=== PATIENT | male | born 1965 | race Two or more races ===

== ENCOUNTER 2025-02-19 21:39 | Inpatient (IN) | payer MEDICARE, MEDICAID, SELFPAY ==
[2025-02-19] VITALS (19 sets, daily range): BP systolic 97–137; BP diastolic 66–100; PULSE 67–95; RESP 20–28; TEMP 36.1–36.2; O2SAT 95–100; BMI 23.6
--- NOTE | 2025-02-19 21:40 | PC.NURSE ---
Case Consult 02/19/2025 21:40:45 [facility] Case # [id number] has been created.
[2025-02-19] MEDS: MIDAZOLAM INJ 1 MG/ML VIAL 2 ML 2 MG IVP ×2 (21:43→21:47)
[2025-02-19] MEDS: PROPOFOL 1,000 MG IVPB 1,000 MG/100 ML VIAL 2.37 MG IV (21:52)
[2025-02-19] MEDS: ETOMIDATE INJ 2 MG/ML VIAL 10 ML 20 MG IVP (21:54)
[2025-02-19] MEDS: SUCCINYLCHOLINE INJ 20 MG/ML VIAL 10 ML 100 MG IV (21:55)
--- NOTE | 2025-02-19 21:58 | EKG_ITS ---
[facility] (Formerly [facility]) Test Date: 2025-02-19 Pat Name: DAVID RUSSO Department: Room: - Gender: Male [employer]ician: : 1965 Requested By: Alfonso Solano Order Number: [id number] Reading MD: Alfonso Solano Measurements Intervals [place] Rate: 80 P: 54 MA: 183 QRS: -5 QRSD: 86 T: 30 QT: 374 QTc: 433 Interpretive Statements SINUS RHYTHM No previous ECG available for comparison /[email or web address]/[id number].pdf
--- NOTE | 2025-02-19 21:59 | EDNOTE_ITS ---
Neuro Symptoms Deficit-RME/HPI General Chief Complaint: Altered Mental Status Stated Complaint: STROKE Time Seen by Provider: 02/19/25 22:04 Arrival date/time: 02/19/25 21:39 Limitations: no limitations RME / HPI RME / HPI Narrative: Dr. 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 Stroke alert initiated prior to ED arrival. Patient was seen by me immediately upon arrival at 2138. Patient was intubated at 2156. LKW 2129 Per EMS, patient was found down on the ground by family. EMS notes fire department observed right facial droop and was drooling out of the right side of his mouth. Patient became combative en route. Blood sugar with EMS was 123. EMS denies the patient being on blood thinners. Full ROS is unobtainable due to the patient's AMS. Related Data Home Medications ?Medication ?Instructions ?Recorded ?Confirmed risperidone 2 mg tablet (Risperdal) 2 mg PO HS #0 tabs 02/23/16 11/05/19 benztropine 2 mg tablet 2 mg PO BID 11/05/19 0 Allergies Allergy/AdvReac Type Severity Reaction Status Date / Time No Known Allergies Allergy Unverified 11/05/19 13:23 Review of Systems Review of Systems ROS Unobtainable: unobtainable due to mental status Past Medical History Past Medical History CARDIAC: Negative Congestive Heart Failure RESPIRATORY: Negative Chronic Obstructive Pulmonary Disease (COPD) GENITOURINARY: Negative Renal Disease ENDOCRINE: Negative Diabetes Mellitus Type 1 or Diabetes Mellitus Type 2 PSYCHO/SOCIAL: Positive Schizophrenia Social History SMOKING STATUS: Current every day smoker ED Exam General Limitations: Present no limitations General appearance: Present in distress and other (Uncooperative, moving all extremities and attempting to remove his IV.) Head Head exam: Present atraumatic and normocephalic Eye Eye exam: Present normal appearance, PERRL and EOMI ENT ENT exam: Present mucous membranes dry and other (Right facial droop. No tongue biting) Neck Neck exam: Present trachea midline Chest Chest inspection: Present normal inspection and symmetric chest wall rise Respiratory Respiratory exam: Present normal lung sounds bilaterally Cardiovascular Cardiovascular exam: Present regular rate, normal rhythm and normal heart sounds Abdominal Exam Abdominal exam: Present soft; Absent distention Extremities Exam Extremities exam: Present normal capillary refill and other; Absent pedal edema Neurological Exam Neurological exam: Present other (Unable to assess. After 4 mg of Versed the patient is able to state his name but cannot answer any other questions. GCS E2,V2,M4) Psychiatric Psychiatric exam: Present agitated Skin Skin exam: Present warm, dry, intact and normal color; Absent rash Course Course Course Narrative: 2155: Patient intubated by resident physician, Dr. Dee, PGY-2, under my supervision. See procedure note. CXR ordered for post intubation. 2200: Patient sent to CT. Quality Measures Suspected type of Stroke: Acute Ischemic Tenecteplase given: within 60 min of arrival stroke Orders Category Date Time Status Bedside Blood Glucose NOW Care 02/19/25 21:58 Active COVID-19 Screening Questionnaire NOW Care 02/19/25 23:24 Active Renal Dialysis Technician NOW Care 02/19/25 21:58 Active Continuous Pulse Oximetry NOW Care 02/19/25 21:58 Completed Decision to Admit X1 Care 02/19/25 23:24 Completed EKG (ED ONLY) *Do not use* NOW Care 02/19/25 21:58 Completed Emergency Titration Protocol Stat Care 02/19/25 23:23 Ordered Emergency Titration Protocol Stat Care 02/19/25 23:24 Ordered In and Out Catheter NEEDED Care 02/19/25 21:58 Active Insert IV NOW Care 02/19/25 21:58 Active Intubation NOW Care 02/19/25 23:01 Completed Miscellaneous Nursing Order X1 Care 02/19/25 23:23 Completed NIH Stroke Scale Q4HX8,QSHIFT Care 02/19/25 22:43 Active NIH Stroke Scale now Care 02/19/25 21:58 Active NPO NOW Care 02/19/25 21:58 Active Neuro Check Q30M Care 02/19/25 22:43 Active Nurse Swallow Screen x1 Care 02/19/25 21:58 Active Urinary Catheter QS Care 02/19/25 22:51 Active Vital Signs Q5M Care 02/19/25 22:33 Completed Consult to Neurology / Tele-Neurology Routine Cons 02/19/25 21:[address] angio stroke protocol Stat Exams 02/19/25 21:[address] stroke protocol Stat Exams 02/19/25 21:58 Completed EKG (ED Only) Stat Exams 02/19/25 21:58 Draft XR chest 1V post procedure Stat Exams 02/19/25 23:45 Taken Alcohol, Blood Medical Stat Lab 02/19/25 21:40 Completed B-Type Natriuretic Peptide Stat Lab 02/19/25 21:40 Completed CBC Stat Lab 02/19/25 21:40 Completed Comprehensive Metabolic Panel Stat Lab 02/19/25 21:40 Completed Drug Screen,Urine Stat Lab 02/19/25 22:49 Completed Magnesium Stat Lab 02/19/25 21:40 Completed Partial Thromboplastin Time Stat Lab 02/19/25 21:40 Completed Prothrombin Time with INR Stat Lab 02/19/25 21:40 Completed Troponin I Stat Lab 02/19/25 21:40 Completed Urinalysis Stat Lab 02/19/25 22:49 Completed Urine Culture Stat Lab 02/19/25 22:49 Received Dexmedetomidine 400 Mcg Ivpb [Precedex Ivpb] Med 02/19/25 23:22 Discontinued 400 mcg in 100 ml IV 0.2 mcg/kg/hr Dexmedetomidine 400 Mcg Ivpb [Precedex Ivpb] Med 02/19/25 23:34 Discontinued 400 mcg in 100 ml IV 0.2 mcg/kg/hr Etomidate Inj [Amidate Inj] Med 02/19/25 21:45 Discontinued 20 mg .ROUTE .STK-MED ONE Etomidate Inj [Amidate Inj] Med 02/19/25 23:17 Discontinued 20 mg IVP X1 ONE Labetalol IV [Trandate IV] Med 02/19/25 22:26 Active 10 mg IVP PRNMRX1 PRN Labetalol IV [Trandate IV] Med 02/19/25 22:26 Active 10 mg IVP PRNMRX1 PRN Labetalol IV [Trandate IV] Med 02/19/25 21:58 Active 10 mg IVP Q15M PRN Midazolam Inj [Versed Inj] Med 02/19/25 21:36 Discontinued 2 mg .ROUTE .STK-MED ONE Midazolam Inj [Versed Inj] Med 02/19/25 21:38 Discontinued 2 mg .ROUTE .STK-MED ONE Midazolam Inj [Versed Inj] Med 02/19/25 22:05 Discontinued 2 mg IVP X1 ONE Midazolam Inj [Versed Inj] Med 02/19/25 22:05 Discontinued 2 mg IVP X1 ONE Midazolam Inj [Versed Inj] Med 02/19/25 21:41 Discontinued 6 mg .ROUTE .STK-MED ONE Nicardipine/Ns 20Mg Ivpb [Cardene Ivpb] Med 02/19/25 22:26 Active 20 mg in 200 ml IV 5 mg/hr Ondansetron Inj [Zofran Inj] Med 02/19/25 21:58 Active 4 mg IVP Q4HR PRN Propofol 1,000 mg Ivpb [Diprivan Ivpb] Med 02/19/25 21:49 Discontinued 1,000 mg in 100 ml IV .STK-MED Propofol 1,000 mg Ivpb [Diprivan Ivpb] Med 02/19/25 22:00 Active 1,000 mg in 100 ml IV 5 mcg/kg/min Succinylcholine Inj [Anectine Inj] Med 02/19/25 23:27 Discontinued 100 mg IV X1 ONE Succinylcholine Inj [Anectine Inj] Med 02/19/25 21:46 Discontinued 200 mg .ROUTE .STK-MED ONE Tenecteplase Inj [TNKase Inj] Med 02/19/25 22:26 Discontinued 19.8 mg IV X1 ONE Tenecteplase Inj [TNKase Inj] Med 02/19/25 22:27 Discontinued 50 mg .ROUTE .STK-MED ONE fentaNYL 2,500 MCG/250 ML BAG [Sublimaze Inj 2,500 MCG/ Med 02/19/25 22:00 Active 250 ML BAG] 2,500 mcg in 250 ml IV 25 mcg/hr Oxygen Delivery NOW RT 02/19/25 21:58 Active Volume Ventilator Stat RT 02/19/25 23:01 Active Vital Signs Vital signs: Vital Signs Pulse Rate 95 02/19/25 22:29 Blood Pressure 137/100 H 02/19/25 22:29 Pulse Oximetry (%) 100 02/19/25 22:29 Fraction of Inspired Oxygen 30 02/19/25 22:29 PROCEDURES: Intubation Time out performed: Yes sedative: Etomidate Mg Given: 20 paralytic: Succinylcholine Mg Given: 100 Laryngoscope: Eren ET Tube Size: 7.5 ET Tube Uncuffed: No Tube Secured Depth (cm): 21 Tube Secured Location: lips Tube Placement Confirmation: visualized tube passing through cords, equal breath sounds bilaterally, no breath sounds over epigastrium and confirmation by capnometry Patient Tolerated Procedure: well and no complications Intubation Complications: none Additional Comments: A time out was performed. My hands were washed immediately prior to the procedure.The patient was placed on a desk monitor including continuous pulse oximetry. Rapid Sequence Intubation was conducted. The patient received 4 mg of etomidate for induction and 100mg of succinylcholine for adequate paralysis. Using a Mac laryngoscope and a size 7.5 endotracheal tube with stylet, the patient was intubated on the 1st attempt. The stylet was removed and cuff balloon was inflated. Appropriate endotracheal tube position was confirmed by direct visualization of vocal cord passage, fogging of the tube, CO2 colormetric indicator and symmetric breath sounds. The tube was secured at 21 cm at the lips. Post intubation chest x-ray is pending at this time. Patient was unable to follow instructions and was agitated therefore decision was made to intubate patient for airway protection as GCS of 8. Case disclosed with Attending Dr. Lino Solano PGY2 Disclaimer: Even though this this note was dictated by speech recognition and even though it was carefully revised there may still be minor errors in exec. creative director due to voice recognition software. Neuro Symptoms / Deficit MDM Narrative MDM Narrative:: Scribe Attestation: 02/19/25 Yasmin Kirk am scribing for and in the presence of Dr. Ramirez. 59-year-old male brought in with a possible stroke alert with witnessed fall. Last known normalL En route to hospital EMS reports that he was able to move all 4 extremities. Possible facial droop and normal fingerstick. In the emergency department the patient was very combative despite Versed. Teleneurologist at the bedside after 2 doses of Versed was given and was able to get a partial exam prior to intubation. Review of the labs shows no leukocytosis, no anemia, or thrombocytopenia. Patient data External records reviewed:: [facility] previous records (Per chart review, patient was seen here on 11/07/19 for acute psychosis.) and EMS form Clinical information provided by:: EMS Social determinants that could affect healthcare access:: none Patient has the following chronic illnesses:: schizophrenia How is presenting disease/condition affected by chronic disease/condition?: uneffected by Evaluation data The following diagnostics were reviewed and interpreted by me:: lab results, radiology exam(s) and EKG tracing(s) Lab and/or radiology exams considered but not ordered:: none Interpretation Summary: WBC normal, Hgb 13.3, Hct 37.8, Sodium 130, Glucose 138, Troponin normal, BNP normal. EKG done at 2305, NSR, rate of 80, normal intervals, normal axis, no acute ST or T-wave changes, according to my interpretation. ------ [place] [facility] Report Signed Patient: DAVID RUSSO [facility]. Record#: [id number] Birthdate: 1965 Age/Sex: 59 / M Location: [facility] Attending Dr: Ordering Physician: Alfonso Suarez MD Date of Service: 02/19/25 Procedure(s): CT stroke protocol Accession Number(s): [id number] cc: Checo Estrella MD; Alfonso Suarez MD~ Examination: CT brain head without contrast. 2-D sagittal coronal reconstructions Date and time of exam:February 19, 2025 1010 hours INDICATIONS: Stroke alert, onset focal neurologic deficit right-sided facial droop beginning one hour ago CTDI: vol (mGy):23.70 DLP: (mGycm):1223 Technique: Multiple CT axial sections of the brain have been obtained, 5 mm slice thickness. Contrast has not been administered. 2-D sagittal, coronal reconstructions have been obtained Low dose protocols were performed. One or more of the following dose reduction techniques were used; automated exposure control, adjustment of the mA and/or KV according to patient size, use of iterative reconstruction technique. Findings: No significant ventricular enlargement. Intra-axial or extra-axial hemorrhage density is not seen. No mass effect or midline shift Basal cisterns are not remarkable. Fourth ventricle is midline. Cranial vault intact. Impression: Negative for acute hemorrhage, mass effect or midline shift Dictated By: Checo Estrella MD Signed By: <Electronically signed by Checo Estrella MD in OV> 02/19/25 2217 [place] [facility] Report Signed Patient: DAVID RUSSO [facility]. Record#: [id number] Birthdate: 1965 Age/Sex: 59 / M Location: [facility] Attending Dr: Ordering Physician: Alfonso Suarez MD Date of Service: 02/19/25 Procedure(s): CT angio stroke protocol Accession Number(s): [id number] cc: Checo Estrella MD; Alfonso Suarez MD~ Examination: CTA carotids with intravenous contrast CTA brain, head with intravenous contrast. 2-D sagittal, coronal reconstructions. 3-D reconstructions. Exam date and time: February 19, 2025 1012 hours INDICATIONS: Stroke alert, onset focal neurologic deficit beginning one hour ago CTDI: vol (mGy) 22.88 DLP: (mGycm) 554 Technique: Multiple CTA axial brain, head carotid images post intravenous contrast injection 75 cc, [id number]. 2-D sagittal, coronal reconstructions. 3-D reconstructions, 3-D post processing including vascular maximum intensity projection images. Low dose protocols were performed. One or more of the following dose reduction techniques were used; automated exposure control, adjustment of the mA and/or KV according to patient size, use of iterative reconstruction technique. Findings: COPD with areas of air space destruction in the apices of the lungs No significant common carotid carotid bifurcation or internal carotid artery stenoses Dominant left vertebral artery with no critical stenoses No cerebral artery vessel arterial occlusions or thrombus Impression : No significant neck arterial stenoses No cerebral vessel arterial occlusions or thrombus Dictated By: Checo Estrella MD Signed By: <Electronically signed by Checo Estrella MD in OV> 02/19/25 9431 Medications / Prescriptions Medications or Prescriptions considered but not ordered:: none Medication administrations:: Medication Administration History Dextrose (Dextrose 50%-Water Inj 50 Ml Syringe) 25 ml IV Q15MIN PRN PRN Reason: BG 50-70 responsive npo pt Stop: 03/22/25 00:16 Dextrose (Dextrose 50%-Water Inj 50 Ml Syringe) 50 ml IV Q15MIN PRN PRN Reason: BG <50 OR BG <70 & pt unresponsive Stop: 03/22/25 00:16 Glucagon (Glucagon Inj 1 Mg Vial) 1 mg IM Q15MIN PRN PRN Reason: BG <70, and no IV access Propofol (Diprivan Ivpb) 1,000 mg in 100 mls @ 2.37 mls/hr IV .Q24H PRN; Protocol PRN Reason: PER PROTOCOL Stop: 03/21/25 21:59 Last Titration: 02/20/25 05:00 Dose: 15 mcg/kg/min, 7.11 mls/hr Documented By: Admin: 02/20/25 04:20 Dose: 20 mcg/kg/min, 9.48 mls/hr Documented By: JENNIFER Co-signed By: RH Titration: 02/20/25 04:20 Dose: Infused Documented By: JENNIFER Co-signed By: RH Titration: 02/20/25 04:00 Dose: 25 mcg/kg/min, 11.85 mls/hr Documented By: Titration: 02/20/25 03:40 Dose: 25 mcg/kg/min, 11.85 mls/hr Documented By: Titration: 02/20/25 03:00 Dose: 30 mcg/kg/min, 14.22 mls/hr Documented By: Titration: 02/20/25 02:15 Dose: 30 mcg/kg/min, 14.22 mls/hr Documented By: Titration: 02/20/25 01:45 Dose: 30 mcg/kg/min, 14.22 mls/hr Documented By: Titration: 02/20/25 01:15 Dose: 20 mcg/kg/min, 9.48 mls/hr Documented By: Titration: 02/20/25 00:29 Dose: 10 mcg/kg/min, 4.74 mls/hr Documented By: Titration: 02/19/25 22:45 Dose: 30 mcg/kg/min, 14.22 mls/hr Documented By: Titration: 02/19/25 22:35 Dose: 40 mcg/kg/min, 18.96 mls/hr Documented By: Titration: 02/19/25 22:00 Dose: 50 mcg/kg/min, 23.7 mls/hr Documented By: Titration: 02/19/25 21:55 Dose: 25 mcg/kg/min, 11.85 mls/hr Documented By: Admin: 02/19/25 21:52 Dose: 5 mcg/kg/min, 2.37 mls/hr Documented By: DT Co-signed By: SE Fentanyl Citrate (Sublimaze Inj 2,500 Mcg/250 Ml Bag) 2,500 mcg in 250 mls @ 2.5 mls/hr IV .Q24H PRN; Protocol PRN Reason: PER PROTOCOL Stop: 02/24/25 21:59 Last Titration: 02/20/25 05:25 Dose: 75 mcg/hr, 7.5 mls/hr Documented By: Titration: 02/20/25 05:00 Dose: 125 mcg/hr, 12.5 mls/hr Documented By: Titration: 02/20/25 04:00 Dose: 125 mcg/hr, 12.5 mls/hr Documented By: Titration: 02/20/25 03:40 Dose: 125 mcg/hr, 12.5 mls/hr Documented By: Titration: 02/20/25 03:00 Dose: 125 mcg/hr, 12.5 mls/hr Documented By: Titration: 02/20/25 02:15 Dose: 125 mcg/hr, 12.5 mls/hr Documented By: Titration: 02/20/25 01:30 Dose: 125 mcg/hr, 12.5 mls/hr Documented By: Titration: 02/20/25 00:29 Dose: 100 mcg/hr, 10 mls/hr Documented By: Titration: 02/19/25 22:25 Dose: 175 mcg/hr, 17.5 mls/hr Documented By: Titration: 02/19/25 22:20 Dose: 100 mcg/hr, 10 mls/hr Documented By: Admin: 02/19/25 22:15 Dose: 25 mcg/hr, 2.5 mls/hr Documented By: HILARIO Co-signed By: Nicardipine/Sodium Chloride (Cardene Ivpb) 20 mg in 200 mls @ 50 mls/hr IV .Q4H PRN; Protocol PRN Reason: Per Nicardipine Stroke Protocol Stop: 03/21/25 22:25 Sodium Chloride (Ns) 1,000 mls @ 75 mls/hr IV .[id number] CARLA Stop: 03/22/25 00:08 Last Admin: 02/20/25 00:25 Dose: 75 mls/hr Documented By: HILARIO Sodium Chloride (Ns) 1,000 mls @ 999 mls/hr IV .Q1H1M ONE Stop: 02/20/25 06:10 Last Admin: 02/20/25 05:12 Dose: 999 mls/hr Documented By: JENNIFER Norepinephrine/Dextrose (Levophed In D5w 8mg/250ml) 8 mg in 250 mls @ 6.666 mls/hr IV .Q24H PRN; Protocol PRN Reason: PER PROTOCOL Stop: 03/22/25 05:10 Labetalol HCl (Labetalol Inj 5 Mg/Ml Vial 20 Ml) 10 mg IVP Q15M PRN PRN Reason: HYPER Labetalol HCl (Labetalol Inj 5 Mg/Ml Vial 20 Ml) 10 mg IVP PRNMRX1 PRN PRN Reason: SBP > 185 mmHg and/or DBP > 110 Labetalol HCl (Labetalol Inj 5 Mg/Ml Vial 20 Ml) 10 mg IVP PRNMRX1 PRN PRN Reason: SBP > 180 mmHg or DBP > 105 Levetiracetam (Levetiracetam Inj 100 Mg/Ml Vial 5ml) 500 mg IVP Q12HR CARLA Stop: 03/22/25 08:59 Ondansetron HCl (Ondansetron Inj 2 Mg/Ml Inj 2 Ml) 4 mg IVP Q4HR PRN PRN Reason: NAUSEA OR VOMITING Stop: 03/21/25 21:57 Ondansetron HCl (Ondansetron Inj 2 Mg/Ml Inj 2 Ml) 4 mg IVP Q6H PRN; Protocol PRN Reason: NAUSEA OR VOMITING Stop: 03/22/25 00:09 Pantoprazole Sodium (Pantoprazole Inj 40 Mg Vial) 40 mg IVP QDAY CARLA Stop: 03/22/25 08:59 Discontinued Medications Etomidate (Etomidate Inj 2 Mg/Ml Vial 10 Ml) Confirm Administered Dose 20 mg .ROUTE .STK-MED ONE Stop: 02/19/25 21:46 Last Admin: 02/19/25 22:12 Dose: Not Given Documented By: DT Non-Admin Reason: Duplicate Medication on eMAR Etomidate (Etomidate Inj 2 Mg/Ml Vial 10 Ml) 20 mg IVP X1 ONE Stop: 02/19/25 23:18 Last Admin: 02/19/25 21:54 Dose: 20 mg Documented By: HILARIO Propofol (Diprivan Ivpb) Confirm Administered Dose 1,000 mg in 100 mls @ ud IV .STK-MED ONE Stop: 02/19/25 21:50 Last Admin: 02/19/25 22:12 Dose: Not Given Documented By: HILARIO Non-Admin Reason: Duplicate Medication on eMAR Dexmedetomidine/Sodium Chloride (Precedex Ivpb) 400 mcg in 100 mls @ 3.95 mls/hr IV .Q24H PRN; Protocol PRN Reason: Per PROTOCOL Stop: 03/21/25 23:21 Dexmedetomidine/Sodium Chloride (Precedex Ivpb) 400 mcg in 100 mls @ 3.95 mls/hr IV .Q24H PRN; Protocol PRN Reason: PER PROTOCOL Stop: 03/21/25 23:33 Sodium Chloride (Ns) 500 mls @ 999 mls/hr IV .Q31M ONE Stop: 02/20/25 00:40 Last Infusion: 02/20/25 02:15 Dose: Infused Documented By: Admin: 02/20/25 00:33 Dose: 999 mls/hr Documented By: HILARIO Magnesium Sulfate (Magnesium Sulfate Ivpb) 2 gm in 50 mls @ 25 mls/hr IV X1 ONE Stop: 02/20/25 02:14 Last Infusion: 02/20/25 03:00 Dose: Infused Documented By: Admin: 02/20/25 00:42 Dose: 25 mls/hr Documented By: HILARIO Midazolam HCl (Versed Pf Inj In Ns Premix) 100 mg in 100 mls @ 1 mls/hr IV .Q24H PRN; Protocol PRN Reason: PER PROTOCOL Stop: 02/25/25 00:41 Last Titration: 02/20/25 01:03 Dose: 0 mg/hr, 0 mls/hr Documented By: Admin: 02/20/25 00:55 Dose: 1 mg/hr, 1 mls/hr Documented By: HILARIO Co-signed By: MELISSA Levetiracetam (Levetiracetam Inj 100 Mg/Ml Vial 5ml) 1,000 mg IVP X1 ONE Stop: 02/20/25 00:31 Last Admin: 02/20/25 00:38 Dose: 1,000 mg Documented By: HILARIO Midazolam HCl (Midazolam Inj 1 Mg/Ml Vial 2 Ml) Confirm Administered Dose 2 mg .ROUTE .STK-MED ONE Stop: 02/19/25 21:37 Last Admin: 02/19/25 22:11 Dose: Not Given Documented By: HILARIO Non-Admin Reason: Duplicate Medication on eMAR Midazolam HCl (Midazolam Inj 1 Mg/Ml Vial 2 Ml) Confirm Administered Dose 2 mg .ROUTE .STK-MED ONE Stop: 02/19/25 21:39 Last Admin: 02/19/25 22:11 Dose: Not Given Documented By: DT Non-Admin Reason: Duplicate Medication on eMAR Midazolam HCl (Midazolam Inj 1 Mg/Ml Vial 2 Ml) Confirm Administered Dose 6 mg .ROUTE .STK-MED ONE Stop: 02/19/25 21:42 Last Admin: 02/19/25 22:11 Dose: Not Given Documented By: DT Non-Admin Reason: Duplicate Medication on eMAR Midazolam HCl (Midazolam Inj 1 Mg/Ml Vial 2 Ml) 2 mg IVP X1 ONE Stop: 02/19/25 22:06 Last Admin: 02/19/25 21:43 Dose: 2 mg Documented By: DT Midazolam HCl (Midazolam Inj 1 Mg/Ml Vial 2 Ml) 2 mg IVP X1 ONE Stop: 02/19/25 22:06 Last Admin: 02/19/25 21:47 Dose: 2 mg Documented By: HILARIO Succinylcholine Chloride (Succinylcholine Inj 20 Mg/Ml Vial 10 Ml) Confirm Administered Dose 200 mg .ROUTE .STK-MED ONE Stop: 02/19/25 21:47 Last Admin: 02/19/25 22:12 Dose: Not Given Documented By: DT Non-Admin Reason: Duplicate Medication on eMAR Succinylcholine Chloride (Succinylcholine Inj 20 Mg/Ml Vial 10 Ml) 100 mg IV X1 ONE Stop: 02/19/25 23:28 Last Admin: 02/19/25 21:55 Dose: 100 mg Documented By: HILARIO Tenecteplase (Tenecteplase Inj 50 Mg Vial) 19.8 mg 0.25 mg/kg (19.8 mg) IV X1 ONE Stop: 02/19/25 22:27 Last Admin: 02/19/25 22:48 Dose: 19.8 mg Documented By: HILARIO Co-signed By: Tenecteplase (Tenecteplase Inj 50 Mg Vial) Confirm Administered Dose 50 mg .ROUTE .STK-MED ONE Stop: 02/19/25 22:28 Last Admin: 02/19/25 23:01 Dose: Not Given Documented By: DT Non-Admin Reason: Duplicate Medication on eMAR see above Consultations Consultation(s) initiated? (list below): Yes Consultation #1 (Physician, Specialty, Details): Discussed case with Dr. Melvin from teleneurology regarding consultation. Discussed patients ED course, exam findings, labs, and radiology results. Recommends TNK. Time: 22:25 Consultation #2 (Physician, Specialty, Details): Discussed case with Dr. Melvin, who states the patient has not had any complications from TNK and recommends admitting the patient. Time: 22:56 Consultation #3 (Physician, Specialty, Details): Discussed case with Dr. Garcia, ICU resident regarding admission. Discussed patients ED course, exam findings, labs, and radiology results. The Hospitalist agrees to accept the patient for admission. Time: 23:17 Diagnosis Neuro Differential Diagnosis: subarachnoid hemorrhage, cerebrovascular accident, transient cerebral ischemia and other (seizure, electrolyte abnormality, drug use, GLF, cardiac arrhythmia) Most likely diagnosis given after review of the tests above:: see clinical impression below Admission Indicated Admission indicated?: indicated Admission Request Was there a request for admission?: Yes Admission Attestation Admission request attestation: Discussed case with [] from Hospitalist service regarding admission. Discussed patients ED course, exam findings, labs, and radiology results. The Hospitalist [agrees,declines] to accept the patient for admission. Disposition Plan Disposition Plan: Admit Critical Care Time Critical Care Time Critical Care Time: Yes Total Critical Care Time (min.): 55 Attestation: The high probability of sudden, clinically significant deterioration in the patient?s condition required the highest level of my preparedness to intervene urgently. The services I provided to this patient were to treat and/or prevent clinically significant deterioration. Services included the following: chart data review, reviewing nursing notes and/or old charts, documentation time, hearing aid consultant collaboration regarding findings and treatment options, medication orders and management, direct patient care, vital sign assessments and ordering, interpreting and reviewing diagnostic studies and lab tests. Aggregate critical care time includes only time during which I was engaged in work directly related to the patient?s care, as described above, whether at bedside or elsewhere in the Emergency Department. It did not include time spent performing other reported procedures or the services of residents, students, nurses or physician assistants. Discharge Plan Plan Patient Disposition: Admit Acute Care w/in Hospital Problem List Clinical Impression: AMS (altered mental status), Facial droop MD Attestation MD Attestation I, Dr. Huynh was involved in the care for this patient was present for the pertinent history and physical, involving the management. Reviewed note and agr damaris.
[2025-02-19 22:08] LABS: Basophils # (Auto) 0.0 Thou/mm3 (0.0-0.2); Basophils % (Auto) 1 % (0-2.5); Eosinophils # (Auto) 0.0 Thou/mm3 (0.0-0.5); Eosinophils % (Auto) 0 % (0-10); Hematocrit 37.8 % (41.0-53.0); Hemoglobin 13.3 g/dL (13.5-16.0); Immature Granulocytes Auto 0.02 Thou/mm3 (0.00-0.00); Lymphocytes # (Auto) 1.5 Thou/mm3 (1.0-4.8); Lymphocytes % (Auto) 21 % (10-50); Mean Corpuscular HGB Conc 35.2 g/dl (31.0-37.0); Mean Corpuscular Hemoglobin 30.4 pg (25.0-35.0); Mean Corpuscular Volume 87 fL (80-100); Monocytes # (Auto) 0.5 Thou/mm3 (0.0-0.8); Monocytes % (Auto) 7 % (0-12); Neutrophils # (Auto) 5.2 Thou/mm3 (1.8-7.7); Neutrophils % (Auto) 71 % (37-80); Nucleated Red Blood Cell # 0.00 Thou/mm3 (0.00-0.00); Nucleated Red Blood Cell % 0 /100 WBC (0); Platelet Count 199 Thou/mm3 (140-440); RDW Standard Deviation 39.9 fL (35.1-43.9); Red Blood Count 4.37 Miln/mm3 (4.50-5.90); White Blood Count 7.3 Thou/mm3 (3.8-10.6)
[2025-02-19] MEDS: fentaNYL 2,500 MCG/250 ML BAG 2,500 MCG/250 ML BAG IV (22:15)
[2025-02-19 22:21] LABS: INR 1.0 (0.9-1.3); Partial Thromboplastin Time 21.6 Seconds (22.0-36.0); Prothrombin Time 10.9 Seconds (9.0-12.2)
[2025-02-19 22:30] LABS: B-Type Natriuretic Peptide 21 pg/mL (0-100)
[2025-02-19 22:39] LABS: Alanine Aminotransferase 8 U/L (10-49); Albumin, Serum 4.3 gm/dL (3.4-4.8); Albumin/Globulin Ratio 1.7 (1.2-2.2); Alcohol, Blood Medical < 3.0 mg/dL (0-10.0); Alkaline Phosphatase 105 U/L (46-116); Anion Gap 10 (7-16); Aspartate Amino Transferase 20 U/L (0-34); BUN/Creatinine Ratio 8 Ratio (12-20); Bilirubin,Total 0.5 mg/dL (0.3-1.2); Blood Urea Nitrogen 6 mg/dL (9-23); Calcium 9.7 mg/dL (8.3-10.6); Calcium (Corrected) 9.7 mg/dL (8.5-10.1); Carbon Dioxide 21.1 mMol/L (20.0-31.0); Chloride 99 mMol/L (98-107); Creatinine (Component) 0.8 mg/dL (0.6-1.3); Estimated Creatinine Clearance 107.8 mL/min (>60); Globulin 2.5 gm/dL (2.3-3.5); Glucose 138 mg/dL (74-106); Magnesium 1.8 mg/dL (1.6-2.6); Osmolality,Calculated 260 (275-295); Potassium 5.0 mMol/L (3.4-5.1); Sodium 130 mMol/L (136-145); Total Protein 6.8 gm/dL (5.7-8.2); Troponin I < 0.020 ng/mL (0.0-0.045); eGFR > 60 See Note
--- NOTE | 2025-02-19 22:45 | PC.NURSE ---
THIS RN INFORMED NEUROLOGIST BRANDON OF PATIENTS BLOOD PRESSURE 128/85. PER PROVIDER THAT PRESSURE IS OKAY. HE IS SUSTAINING FOR NOW
[2025-02-19] MEDS: TENECTEPLASE INJ 50 MG VIAL 19.8 MG IV (22:48)
--- NOTE | 2025-02-19 22:48 | PC.NURSE ---
this rn informed provider juvencio of patients blood pressure of 113/78. no orders recieved.
[2025-02-19 23:01] LABS: Collection Type, Urine Catheter; Squamous Epithelial Cell,Urine 0 /hpf (0-5)
--- NOTE | 2025-02-19 23:03 | PD.TNEURO ---
Tele Neuro Consultation Consultation Date 02/19/25 Most Recent Vital Signs Last Vital Signs Pulse 95 02/19/25 22:29 BP 137/100 H 02/19/25 22:29 Pulse Ox 100 02/19/25 22:29 FiO2 30 02/19/25 22:29 Laboratory-Coagulation Panel PT 10.9 Seconds (9.0-12.2) 02/19/25 21:40 INR 1.0 (0.9-1.3) 02/19/25 21:40 APTT 21.6 Seconds (22.0-36.0) L 02/19/25 21:40 Consultation Narrative [facility] Patient Name:???Shahid Wallace Date of :???1965 Identification Number:??? Date of Service:???02/19/2025 21:40:45 Diagnosis:?I63.89 - Cerebrovascular accident (CVA) due to other mechanism ([facility]) Impression: ?59 year old man with history of schizophrenia presenting with acute unresponsiveness. ? ?Exam shows confused aphasic patient with right facial droop and slurred speech. ? ?CT head with no acute findings. ? ?Differential diagnosis includes stroke, TIA, seizure with post-ictal state, toxometabolic encephalopathy, medication effect. ? ?Patient is within the window for thrombolytics, and I discussed the risks and benefits of this treatment with his sister and Dr. Huynh. Patient's sister expressed understanding and wished to proceed. ? ?Recommend admission for MRI brain and post-TNK care. Our recommendations are outlined below. Recommendations: IV Tenecteplase recommended. I confirmed the following. (Patient name, , MRN, Blood Pressure, dose of Thrombolytic and waste, weight completed by stretcher/scale not stated weight, have ED staff inform ED MD of thrombolytic decision) Thrombolytic bolus given Without Complication. IV Tenecteplase Total Dose ? 19.8 mg (Dose Rounding Per Facility Protocol) Routine post Thrombolytic monitoring including neuro checks and blood pressure control during/after treatment Monitor blood pressure Check blood pressure and neuro assessment every 15 min for 2 h, then every 30 min for 6 h, and finally every hour for 16 h. Manage Blood Pressure per post Thrombolytic protocol. ? Follow designated hospital protocol for admission and post thrombolytic care ? CT brain 24 hours post Thrombolytic ? NPO until swallowing screen performed and passed ? No antiplatelet agents or anticoagulants (including heparin for DVT prophylaxis) in first 24 hours ? No Jules catheter, nasogastric tube, arterial catheter or central venous catheter for 24 hr, unless absolutely necessary ? Telemetry ? Bedside swallow evaluation ? HOB less than 30 degrees ? Euglycemia ? Avoid hyperthermia, PRN acetaminophen ? DVT prophylaxis ? Inpatient Neurology Consultation ? Stroke evaluation as per inpatient neurology recommendations Discussed with ED physician Advanced Imaging:CTA Head and Neck Completed. LVO:No Patient is not a candidate for CATHERINE Metrics: Last Known Well: 02/19/2025 21:00:00 Dispatch Time: 02/19/2025 21:40:45 Arrival Time: 02/19/2025 21:39:00 Initial Response Time: 02/19/2025 21:42:51Symptoms: witnessed loss of consciousness. Initial patient interaction: 02/19/2025 21:49:00 NIHSS Assessment Completed: 02/19/2025 22:05:00Patient is a candidate for Thrombolytic. Thrombolytic Medical Decision: 02/19/2025 22:27:10 Needle Time: 02/19/2025 22:49:58Weight Noted by Staff: [address] Head: I personally reviewed all the CT images that were available to me and it showed: no acute findings Primary Provider Notified of Diagnostic Impression and Management Plan on: 02/19/2025 22:59:11 Extended thrombolytic management related to: ?? Awaiting on history by family on potential contraindications Thrombolytic Contraindications: Last Known Well > 4.5 hours:?No CT Head showing hemorrhage:?No Ischemic stroke within 3 months:?No Severe head trauma within 3 months:?No Intracranial/intraspinal surgery within 3 months:?No History of intracranial hemorrhage:?No Symptoms and signs consistent with an SAH:?No GI malignancy or GI bleed within 21 days:?No Coagulopathy: Platelets <100 000 /mm3, INR >1.7, aPTT>40 s, or PT >15 s:?Unknown at the time of medical decision making Treatment dose of LMWH within the previous 24 hrs:?No Use of NOACs in past 48 hours:?No Glycoprotein IIb/IIIa receptor inhibitors use:?No Symptoms consistent with infective endocarditis:?No Suspected aortic arch dissection:?No Intra-axial intracranial neoplasm:?No Thrombolytic Decision and Management Plan: Management with thrombolytic treatment was explained to the Family as was risks and benefits and alternatives to the treatment. Patient agrees with the decision to proceed with thrombolytic treatment. . All questions were answered and the Family expressed understanding of the treatment plan. History of Present Illness:Patient is a 59 year old Male. Patient was brought by EMS for symptoms of witnessed loss of consciousness. 59 year old man with history of schizophrenia presenting after unresponsiveness at home, now starting to wake up. LKW 30 minutes prior to arrival; family witnessed loss of consciousness. No reported convulsions. Not on any blood thinners per EMS. Sister reports that he is losing a lot of weight lately. She also verifies that he has no history of ischemic stroke or ICH, no recent surgeries or head trauma, and no GI hemorrhage. ? Past Medical History: ?There is no history of Stroke ?There is no history of Seizures unable to obtain due to:?? Patient Is Confused Medications: No Anticoagulant use? No Antiplatelet use Reviewed EMR for current medications Allergies:? Allergies Unable To Obtain Due To:?Patient Is Confused Social History: Smoking: Yes Family History: Family History Cannot Be Obtained Because:Patient Is Confused ROS :?ROS Cannot Be Obtained Because:? Patient Is Confused Past Surgical History: Past Surgical History Cannot Be Obtained Because: Patient Is Confused There Is No Surgical History Contributory To Today?s Visit ? Examination: BP(157/110),?Pulse(109),?Blood Glucose(123) 1A: Level of Consciousness - Alert; keenly responsive?+ 0 1B: Ask Month and Age - Could Not Answer Either Question Correctly?+ 2 1C: Blink Eyes & Squeeze Hands - Performs 0 Tasks?+ 2 2: Test Horizontal Extraocular Movements - Normal?+ 0 3: Test Visual Sage - No Visual Loss?+ 0 4: Test Facial Palsy (Use Grimace if Obtunded) - Minor paralysis (flat nasolabial fold, smile asymmetry)?+ 1 5A: Test Left Arm Motor Drift - No Drift for 10 Seconds?+ 0 5B: Test Right Arm Motor Drift - No Drift for 10 Seconds?+ 0 6A: Test Left Leg Motor Drift - No Drift for 5 Seconds?+ 0 6B: Test Right Leg Motor Drift - No Drift for 5 Seconds?+ 0 7: Test Limb Ataxia (FNF/Heel-Osman) - No Ataxia?+ 0 8: Test Sensation - Normal; No sensory loss?+ 0 9: Test Language/Aphasia - Mild-Moderate Aphasia: Some Obvious Changes, Without Significant Limitation?+ 1 10: Test Dysarthria - Mild-Moderate Dysarthria: Slurring but can be understood?+ 1 11: Test Extinction/Inattention - No abnormality?+ 0 NIHSS Score:?7 Pre-Morbid Modified Karis Scale:Unable to assess Spoke with :?Dr. Huynh This consult was conducted in real time using interactive audio and video technology. Patient was informed of the technology being used for this visit and agreed to proceed. Patient located in hospital and provider located at home/office setting. Patient is being evaluated for possible acute neurologic impairment and high probability of imminent or life-threatening deterioration. I spent total of 35 minutes providing care to this patient, including time for face to face visit via telemedicine, review of medical records, imaging studies and discussion of findings with providers, the patient and/or family. Dr Mari Melvin [facility] For Inpatient follow-up with [facility] physician please call [facility] at . As we are not an outpatient service for any post hospital discharge needs please contact the hospital for assistance. If you have any questions for the [facility] physicians or need to reconsult for clinical or diagnostic changes please contact us via [facility] at . Signature :?Mari Melvin
[2025-02-19 23:07] LABS: Bilirubin,Urine Negative (Negative); Blood,Urine Negative (Negative); Clarity,Urine Clear (Clear/Hazy); Color,Urine Lt-Yellow (Lt Yel-Yel); Glucose, Urine Negative (Negative); Ketones,Urine 1+ (Negative); Leukocyte Esterase,Urine Negative (Negative); Nitrite,Urine Negative (Negative); PH,Urine 6.5 (5.0-7.0); Protein,Urine Trace (Neg - Trace); RBC,Urine 1 /hpf (0-3); Specific Gravity,Urine 1.019 (1.001-1.035); Urobilinogen,Urine Negative mg/dL (0.0-1.0); WBC,Urine 2 /hpf (0-5)
[2025-02-19 23:20] LABS: Amphetamine/Methamp Scrn,U Negative (Negative); Barbiturate Screen,Urine Negative (Negative); Benzodiazepines Screen,Urine Positive (Negative); Benzoylecgonine Screen, Ur Negative (Negative); Fentanyl Screen,Urine Negative (Negative); Opiate Screen,Urine Negative (Negative); THC Screen,Urine Negative (Negative)
--- NOTE | 2025-02-19 23:28 | PC.NURSE ---
INFROMED PROVIDER O'JANNETH OF PATIENT BLOOD PRESSURE CONTINUING TO LOWER. PER PROVIDER WE WILL HAVE TO ORDER SOMETHING DIFFERENT THAN THE PROPOFOL.
--- NOTE | 2025-02-19 23:40 | PC.NURSE ---
INFORMED PROVIEDR [place] OF NEED OF NEW DEXMEDETOMIDINE ORDER TO MATCH A RASS OF -4. PATIENTS PRESSURE LOWERING ON THE CURRENT SEDATION MEDICAITONS. PER PROVIDER I WILL FIX IT
--- NOTE | 2025-02-19 23:45 | XR_ITS ---
Examination: AP chest single view Technique one AP portable semiupright chest single view Date and time: February 19, 2025, 11:47 PM INDICATIONS: Post orogastric tube placement FINDINGS: Orogastric tube in the stomach satisfactory position Right base pneumonia. No significant cardiac enlargement. Mild vascular congestion IMPRESSION: Orogastric tube in the stomach satisfactory position.
[2025-02-20] VITALS (117 sets, daily range): BP systolic 84–163; BP diastolic 55–101; PULSE 53–110; RESP 12–95; TEMP 36.1–36.9; O2SAT 91–100; BMI 21.2
--- NOTE | 2025-02-20 00:02 | PC.NURSE ---
THIS RN INFORMED PROVIDER [place] OF NEED OF FIXED DEXMEDETOMIDINE ORDER AND PATIENTS BLOOD PRESSURE DECREASED 99/65. PER PROVIDER CALL THE ICU RESIDENT HES ADMITTED . ICU RESIDENT CALLED AND VERBALLY INFORMED OF PATIENTS PRESSURE AND NEED OF NEW ORDER. PER RESIDENT I HAVE TO TALK TO MY ATTENDING AND THEN I WILL GO DOWN AND SEE HIM AND PLACE ORDER.
[2025-02-20] MEDS: SODIUM CHLORIDE 0.9% 1000 ML 1,000 ML 75 ML IV ×2 (00:25→14:40)
--- NOTE | 2025-02-20 00:32 | PD.RESHP ---
Documentation for date of: 02/20/25 [facility] History of Present Illness Chief complaint: AMS History of present illness: This patient is a 59-year-old male with past medical history of schizophrenia on multiple antipsychotic, active smoker brought in by EMS to ED on 02/19/2025 with chief complaint of altered mental status. Patient's baseline is AO x 3 per patient's sister. EMS reported that patient was noted to be found on floor with foaming around mouth and right facial droop. On arrival, patient's blood sugar were 123 mg/dL and blood pressure was 150/80. Patient was combative and confused. He was given Versed 2 mg x 1. Patient's GCS was 8 there for was immediately intubated to protect airways. He was not hypoxic. Majority of the history was taken from patient's sister Rema Blackmon who reported that patient last well-known time was 9 PM. She reported the patient started feeling weak and started to pass out and she helped him to lay on the floor without hitting his head and suddenly patient started having right arm [id number] movement with foaming around the mouth. No jerking of the body or urine dribbling or passing of stool was noticed per patient's sister. She also stated the patient had unusual sleep of 4 hours in the afternoon prior to this episode. Denies any previous history of similar episode. She stated that patient is usually AO x 3. Patient's sister showed me the videos of patient's arm movement [id number]. No gross injuries were seen. Patient is also noncompliant with his medications. No history of seizures. He also endorsed abdominal pain and chronic cough dry in nature per patients' sister few days ago. Patient follows urgent care clinic for PCP follow-up and follow mental health with Dr. Kramer as outpatient for schizophrenia management. ED course: In the ED, patient was initially combative and was given Versed 2 mg x 1. Patient was confused with a GCS of 8 and was intubated with the help of etomidate 4 mg for induction and succinylcholine 100 mg for paralysis. Initial blood pressure was 137/100, heart rate 95, respiratory 20 and afebrile. He was saturating on mechanical ventilator. AC/VC mode Vt 400 ,flow 65 RR 20 PEEP 5 Fio2 30.Patient was started on sedation with propofol and fentanyl. Stroke alert was initiated. Teleneuro was consulted.Per teleneuro note, NIHSS score 7, examination showed confused aphasic patient with right facial droop and slurred speech. Differentials include stroke, TIA, seizure, postictal state, metabolic encephalopathy, medication effect. Patient was within the window of thrombolytics and TNK was recommended along with MRI brain. Tenecteplase was given dose 19.8 mg. Neurochecks with blood pressure check recommended. Neurochecks every 15 min for 2 hours and every 30 for 6 hours and finally every hour for [address] brain 24-hour postthrombolytic. N.p.o. until swallow screen performed and passed. No anticoagulation was recommended. No Jules catheter, NG tube or arterial cath unless needed. Bedside swallow evaluation. Head of bed elevation less than 30 degrees. Euglycemia. DVT prophylaxis with SCDs. Labs revealed white count 7.3, hemoglobin 13.3, hematocrit 37.8, platelet count 199. Coagulation panel showed INR 1.0. aPTT 21.6. ABGs revealed pH 7.29, PO2 90. FiO2 21. Chemistry panel showed sodium 130, potassium 5.0, chloride 99, bicarb 21.1. Anion gap 10, BUN 6 and creatinine 0.8. Lactic acid 1.2. Magnesium 1.8. Liver enzymes unremarkable. Troponin I was negative. Albumin 4.3. Urinalysis showed ketones only. U tox positive for benzodiazepines. Blood alcohol level was negative. EKG showed sinus rhythm with QTc 433. No acute ST-T changes seen. Imaging: Head CT showed no acute changes. Head and neck CT was negative. PMH: Schizophrenia, active smoker/COPD not on any inhalers PSH: Nonsignificant Allergies: No known drug allergies SH: Actively smokes cigarettes 2 packs/day. No history of drug use or drinking alcohol per patient's sister. Family history: History of hypertension in mother Home medications: Banophen 25 mg twice daily, benztropine 2 mg once daily, Invega sustena to 34 mg every 4 weeks, Risperdal 4 mg at bedtime, Seroquel 100 mg at bedtime as needed, trazodone 300 mg at bedtime Patient is admitted to ICU for further management of acute encephalopathy likely due to stroke/metabolic/seizures. Review of Systems Review of Systems ROS Unobtainable: unobtainable due to mental status and due to endotracheal tube Past Medical History Past Medical History RESPIRATORY: Positive Chronic Obstructive Pulmonary Disease (COPD) PSYCHO/SOCIAL: Positive Schizophrenia Exam Vital Signs Temp Pulse Resp BP Pulse Ox O2 Del Method FiO2 97.0 F 70 20 97/68 99 Mechanical Ventilation 30 02/19/25 23:05 02/19/25 23:55 02/19/25 23:55 02/19/25 23:55 02/19/25 23:45 02/19/25 23:45 02/19/25 22:29 Narrative Exam GENERAL APPEARANCE: Patient is intubated and mechanically ventilated. HEENT: NC, AT. Dry mucous membrane. EOMI, clear conjunctiva, oropharynx clear. Right facial droop noted. NECK: Supple without lymphadenopathy. No stiffness or restricted ROM. HEART: Regular rate and regular rhythm, normal S1/S2, no m/r/g LUNGS: Bilateral coarse breath sounds heard on auscultation. Mild wheezing noted. Intubated. ABDOMEN: Soft, nontender, nondistended with good bowel sounds heard. BACK: No CVAT, no obvious deformity. EXTREMITIES: Without cyanosis, clubbing or edema. NEUROLOGICAL: Right facial droop, intubated and mechanically ventilated. Currently sedated. Skin: Warm and dry without any rash. Psych: Not assessed currently on sedation Results: Labs 02/20/25 04:25 02/20/25 04:25 Labs: Short CBC 02/19/25 Range/Units 21:40 WBC 7.3 (3.8-10.6) Thou/mm3 Hgb 13.3 L (13.5-16.0) g/dL Hct 37.8 L (41.0-53.0) % Plt Count 199 (140-440) Thou/mm3 BMP 02/19/25 21:40 Sodium 130 L Potassium 5.0 Chloride 99 Carbon Dioxide 21.1 BUN 6 L Creatinine 0.8 Glucose 138 H Calcium 9.7 Cardiac Enzymes 02/19/25 Range/Units 21:40 Troponin I < 0.020 (0.0-0.045) ng/mL Liver Function 02/19/25 Range/Units 21:40 Total Bilirubin 0.5 (0.3-1.2) mg/dL AST 20 (0-34) U/L ALT 8 L (10-49) U/L Alkaline Phosphatase 105 (46-116) U/L Albumin 4.3 (3.4-4.8) gm/dL Urine 02/19/25 Range/Units 22:49 Urine Color Lt-Yellow (Lt Yel-Yel) Urine Clarity Clear (Clear/Hazy) Urine pH 6.5 (5.0-7.0) Ur Specific [place] 1.019 (1.001-1.035) Urine Protein Trace (Neg - Trace) Urine Glucose (UA) Negative (Negative) Quality Measures Quality Measures stroke Suspected type of Stroke: Acute Ischemic Tenecteplase given: within 60 min of arrival Rehab services: PT evaluation ordered and Speech Language Pathology eval ordered VTE Prophylaxis: not indicated Antithrombotic by day 2:: ordered Statin ordered: <75 y/o high intensity dose Anticoagulation ordered for A-fib or flutter (current or hx): not indicated Medications Home Medications and Allergies Home Medications ?Medication ?Instructions ?Recorded ?Confirmed ?Type risperidone 2 mg tablet (Risperdal) 4 mg PO HS #0 tabs 02/23/16 02/20/25 History benztropine 2 mg tablet 2 mg PO BID 11/05/19 02/20/25 History diphenhydramine HCl 25 mg capsule 25 mg PO BID 02/20/25 02/20/25 History (Banophen) melatonin 10 mg capsule 10 mg PO HS PRN sleep 02/20/25 02/20/25 History paliperidone palmitate 234 mg/1.5 234 mg .Route .4 weeks 02/20/25 02/20/25 History mL intramuscular syringe (Invega Sustenna) quetiapine 100 mg tablet 100 mg PO HS 02/20/25 02/20/25 History quetiapine 100 mg tablet (Seroquel) 100 mg PO HS 02/20/25 02/20/25 History trazodone 300 mg tablet 300 mg PO HS 02/20/25 02/20/25 History Allergies Allergy/AdvReac Type Severity Reaction Status Date / Time No Known Allergies Allergy Unverified 11/05/19 13:23 Visit Medications Dextrose (Dextrose 50%-Water Inj 50 Ml Syringe) 25 ml IV Q15MIN PRN PRN Reason: BG 50-70 responsive npo pt Stop: 03/22/25 00:16 Dextrose (Dextrose 50%-Water Inj 50 Ml Syringe) 50 ml IV Q15MIN PRN PRN Reason: BG <50 OR BG <70 & pt unresponsive Stop: 03/22/25 00:16 Glucagon (Glucagon Inj 1 Mg Vial) 1 mg IM Q15MIN PRN PRN Reason: BG <70, and no IV access Propofol (Diprivan Ivpb) 1,000 mg in 100 mls @ 2.37 mls/hr IV .Q24H PRN; Protocol PRN Reason: PER PROTOCOL Stop: 03/21/25 21:59 Last Titration: 02/19/25 22:45 Dose: 30 mcg/kg/min, 14.22 mls/hr Fentanyl Citrate (Sublimaze Inj 2,500 Mcg/250 Ml Bag) 2,500 mcg in 250 mls @ 2.5 mls/hr IV .Q24H PRN; Protocol PRN Reason: PER PROTOCOL Stop: 02/24/25 21:59 Last Titration: 02/19/25 22:25 Dose: 175 mcg/hr, 17.5 mls/hr Nicardipine/Sodium Chloride (Cardene Ivpb) 20 mg in 200 mls @ 50 mls/hr IV .Q4H PRN; Protocol PRN Reason: Per Nicardipine Stroke Protocol Stop: 03/21/25 22:25 Dexmedetomidine/Sodium Chloride (Precedex Ivpb) 400 mcg in 100 mls @ 3.95 mls/hr IV .Q24H PRN; Protocol PRN Reason: PER PROTOCOL Stop: 03/21/25 23:33 Sodium Chloride (Ns) 1,000 mls @ 75 mls/hr IV .[id number] CARLA Stop: 03/22/25 00:08 Last Admin: 02/20/25 00:25 Dose: 75 mls/hr Sodium Chloride (Ns) 500 mls @ 999 mls/hr IV .Q31M ONE Stop: 02/20/25 00:40 Magnesium Sulfate (Magnesium Sulfate Ivpb) 2 gm in 50 mls @ 25 mls/hr IV X1 ONE Stop: 02/20/25 02:14 Labetalol HCl (Labetalol Inj 5 Mg/Ml Vial 20 Ml) 10 mg IVP Q15M PRN PRN Reason: HYPER Labetalol HCl (Labetalol Inj 5 Mg/Ml Vial 20 Ml) 10 mg IVP [id number] PRN PRN Reason: SBP > 185 mmHg and/or DBP > 110 Labetalol HCl (Labetalol Inj 5 Mg/Ml Vial 20 Ml) 10 mg IVP [id number] PRN PRN Reason: SBP > 180 mmHg or DBP > 105 Levetiracetam (Levetiracetam Inj 100 Mg/Ml Vial 5ml) 1,000 mg IVP X1 ONE Stop: 02/20/25 00:31 Levetiracetam (Levetiracetam Inj 100 Mg/Ml Vial 5ml) 500 mg IVP Q12HR CARLA Stop: 03/22/25 08:59 Ondansetron HCl (Ondansetron Inj 2 Mg/Ml Inj 2 Ml) 4 mg IVP Q4HR PRN PRN Reason: NAUSEA OR VOMITING Stop: 03/21/25 21:57 Ondansetron HCl (Ondansetron Inj 2 Mg/Ml Inj 2 Ml) 4 mg IVP Q6H PRN; Protocol PRN Reason: NAUSEA OR VOMITING Stop: 03/22/25 00:09 Pantoprazole Sodium (Pantoprazole Inj 40 Mg Vial) 40 mg IVP QDAY CARLA Stop: 03/22/25 08:59 Discontinued Medications Etomidate (Etomidate Inj 2 Mg/Ml Vial 10 Ml) 20 mg IVP X1 ONE Stop: 02/19/25 23:18 Last Admin: 02/19/25 21:54 Dose: 20 mg Dexmedetomidine/Sodium Chloride (Precedex Ivpb) 400 mcg in 100 mls @ 3.95 mls/hr IV .Q24H PRN; Protocol PRN Reason: Per PROTOCOL Stop: 03/21/25 23:21 Midazolam HCl (Midazolam Inj 1 Mg/Ml Vial 2 Ml) 2 mg IVP X1 ONE Stop: 02/19/25 22:06 Last Admin: 02/19/25 21:43 Dose: 2 mg Midazolam HCl (Midazolam Inj 1 Mg/Ml Vial 2 Ml) 2 mg IVP X1 ONE Stop: 02/19/25 22:06 Last Admin: 02/19/25 21:47 Dose: 2 mg Succinylcholine Chloride (Succinylcholine Inj 20 Mg/Ml Vial 10 Ml) 100 mg IV X1 ONE Stop: 02/19/25 23:28 Last Admin: 02/19/25 21:55 Dose: 100 mg Tenecteplase (Tenecteplase Inj 50 Mg Vial) 19.8 mg 0.25 mg/kg (19.8 mg) IV X1 ONE Stop: 02/19/25 22:27 Last Admin: 02/19/25 22:48 Dose: 19.8 mg Assessment & Plan Plan Summary: This patient is a 59-year-old male with past medical history of schizophrenia on multiple antipsychotic, active smoker brought in by EMS to ED on 02/19/2025 with chief complaint of altered mental status. Patient's baseline is AO x 3 per patient's sister. EMS reported that patient was noted to be found on floor with foaming around mouth and right facial droop. Patient was combative and confused. He was given Versed 2 mg x 1. Patient's GCS was 8 due to confusion therefore was immediately intubated to protect airways.Patient is admitted to ICU for further management of acute encephalopathy likely due to stroke/metabolic/seizures. Neurology #Acute encephalopathy #Likely related to stroke vs ?seizures vs medication noncompliance schizophrenia vs metabolic/toxic -Patient presented with altered mental status. Last well-known time was 9 PM. Patient was brought in by EMS on 9:30. Within window of TNK and no complications. Right facial droop and slurred speech was endorsed by patient's sister and EMS. Blood sugars were 123 mg/dL. -Coagulation panel showed INR 1.0. aPTT 21.6. -U tox positive for benzodiazepines. Blood alcohol level was negative. Troponin I was negative. Lactic acid 1.2. -Stroke alert was initiated. Teleneuro was consulted.Per teleneuro note, NIHSS score 7, examination showed confused aphasic patient with right facial droop and slurred speech. Patient was within the window of thrombolytics and TNK was recommended along with MRI brain. -Tenecteplase was given dose 19.8 mg. DDx:stroke, TIA, seizure, postictal state, metabolic encephalopathy, medication effect. Diagnostic Test: Head CT showed no acute changes. Head and neck CT showed no LVO. EKG showed sinus rhythm. No acute ST-T changes. Treatment Plan: -Post TNK, admit to ICU -Neurochecks with blood pressure check recommended. -Neurochecks every 15 min for 2 hours and every 30 for 6 hours and finally every hour for 16 hours.. -CT brain 24-hour postthrombolytic. -N.p.o. until swallow screen performed and passed. -No anticoagulation was recommended. -No Jules catheter, NG tube or arterial cath unless needed. -Bedside swallow evaluation once extubated. -Head of bed elevation less than 30 degrees. -DVT prophylaxis with SCDs. -Euglycemia -Allow permissive hypertension -Tele neuro will follow - Neurologist, Dr Torres consulted, appreciate recommendations - MRI brain stroke protocol and EEG - PT ordered - Morning labs including lipid panel, A1c, TSH - Aspiration precautions -Treatment Review: #?Possible Seizure -Related to medication noncompliance/metabolic/stroke -Patient was brought in altered and per patient's video was shown by his sister he had rapid [id number] movement of his right arm with no tongue bite and no urine dribbling. Diagnostic tests: CK, EEG awake and drowsy Treatment plan: -Loading dose of Keppra given 1 g x 1 along with Keppra 500 mg twice daily -Neurology following -Follow-up with CK, EEG awake and drowsy #History of schizophrenia -No suicidal ideation in past couple of days per patient's sister. - Home medications listed: Banophen 25 mg twice daily, benztropine 2 mg once daily, Invega sustena 234 mg every 4 weeks, Risperdal 4 mg at bedtime, Seroquel 100 mg at bedtime as needed, trazodone 300 mg at bedtime - Treatment plan -Holding home meds Cardiovascular #Hypotension related to sedation -Patient's blood pressure dropped with propofol and fentanyl. DDx: Related to sedation Diagnostic Test: Lactic acid was normal. No infection noted on chest x-ray. Treatment Plan: -IV fluids NS given 500 cc x 1 -IV fluid maintenance NS at 75 cc/h -Allow permissive hypertension consider low-dose Levophed as needed to keep MAP above 75 Treatment Review: Respiratory #Intubated and mechanically ventilated In the ED, patient was initially combative and was given Versed 2 mg x 1. Patient was confused with a GCS of 8 and was intubated with the help of etomidate 4 mg for induction and succinylcholine 100 mg for paralysis. -Initial blood pressure was 137/100, heart rate 95, respiratory 20 and afebrile. He was saturating on mechanical ventilator. -Patient was started on sedation with propofol and fentanyl. DDx: Related to acute encephalopathy, medication noncompliance, history of schizophrenia Diagnostic Test: AC/VC mode Vt 400 ,flow 65 RR 20 PEEP 5 Fio2 30. Treatment Plan: - Continue mechanical ventilation with intubation -Follow-up with ABGs -RT following -Aspiration precautions -Oxygen as needed along with suctioning Treatment Review: #History of COPD #Active smoker -Patient smokes cigarettes 2 packs/day. Diagnostic tests: Chest x-ray was negative. Treatment plan: -Discussed regarding nicotine patch. Patient can follow-up outpatient for Varencline cravings once downgraded to floors GI and F/E/N #? Abdominal pain -Per patient's sister, patient was complaining of abdominal pain prior to this episode. DDx: Possible constipation? Diagnostic Test: KUB ordered Treatment Plan: -No active management -Follow-up with KUB Treatment Review: Renal #Electrolyte disturbance related to medications # Hypoosmolar hyponatremia -Chemistry panel showed sodium 130, potassium 5.0, chloride 99, bicarb 21.1. Anion gap 10, BUN 6 and creatinine 0.8. Urinalysis showed ketones only. DDx: Related to medications Diagnostic Test: CMP Treatment Plan: -IV bolus given NS 500 x1 -IV fluids given NS at 75 cc/h -Follow-up with sodium in the morning Treatment Review: Heme #Normocytic anemia Labs revealed white count 7.3, hemoglobin 13.3, hematocrit 37.8 Diagnostic Test: CBC. INR was 1.0 Treatment Plan: -PRBC if hemoglobin drops below 7 -Follow-up with morning CBC Treatment Review: Endo #Hyperglycemia Diagnostic Test: CMP Treatment Plan: -Blood sugar checks every 6 hourly and Accu-Chek with hypoglycemia protocol -Follow-up with A1c Treatment Review: ID No active issue DVT prophylaxis: SCDs GI prophylaxis: Protonix 40 IV daily Diet: N.p.o. for now, nurse swallow screen and speech eval once extubated Jules: Present Lines: Peripherals Drips: Propofol and fentanyl Vent: AC/VC mode Vt 400 ,flow 65 RR 20 PEEP 5 Fio2 30. CODE STATUS: Full code Reason of hospitalization: Admitted for workup and management of acute encephalopathy related to stroke/seizures/metabolic/medications. Patient discussed with my attending Physician, Dr. Snehal kline MD, PGY 3 Attending Provider Attestation/Addendum Attending Provider Attestation/Addendum After examination of the patient and review of the clinical data I feel that this patient needs admission to the hospital for further treatment/evaluation. Attending Provider Attestation/Addendum I attest that I was physically present for the evaluation, physical examination, lab and imaging review of the patient with the residents. I discussed the case with the residents and agree with the findings and plans of care as documented above. Aj Brian MD
[2025-02-20] MEDS: SODIUM CHLORIDE 0.9% 500 ML 500 ML 999 ML IV (00:33)
[2025-02-20] MEDS: levETIRAcetam INJ 100 MG/ML VIAL 5ML 1000 MG IVP (00:38)
[2025-02-20] MEDS: Magnesium Sulfate 2 GM Ivpb 2 GM/50 ML BAG IV (00:42)
[2025-02-20] MEDS: MIDAZOLAM/NS 100 MG IVPB 100 MG/100 ML BAG IV (00:55)
[2025-02-20 01:13] LABS: Base Excess -5 (-3-3); HCO3 22 mEq/L (20-26); Inspired Oxygen, FIO2 21 %; O2 Saturation 97 % (91-98); PCO2 46 mmHg (32.0-48.0); PO2 90 mmHg (83-108); pH, Arterial 7.29 (7.35-7.45)
[2025-02-20 01:14] LABS: Allen Test Performed/OK; Puncture Site Right Radial
[2025-02-20 01:21] LABS: Lactate (Lactic Acid) 1.2 mMol/L (0.4-2.0)
[2025-02-20 02:39] LABS: Creatine Kinase 509 U/L (34-171)
[2025-02-20] MEDS: PROPOFOL 1,000 MG IVPB 1,000 MG/100 ML VIAL 9.48 MG IV (04:20)
[2025-02-20 05:02] LABS: Base Excess -3 (-3-3); HCO3 23 mEq/L (20-26); Inspired Oxygen, FIO2 30 %; O2 Saturation 98 % (91-98); PCO2 45 mmHg (32.0-48.0); PO2 100 mmHg (83-108); pH, Arterial 7.32 (7.35-7.45)
[2025-02-20 05:05] LABS: Allen Test Performed/OK; Puncture Site Right Radial
[2025-02-20] MEDS: SODIUM CHLORIDE 0.9% 1000 ML 1,000 ML 999 ML IV (05:12)
[2025-02-20 05:28] LABS: Basophils # (Auto) 0.0 Thou/mm3 (0.0-0.2); Basophils % (Auto) 1 % (0-2.5); Eosinophils # (Auto) 0.0 Thou/mm3 (0.0-0.5); Eosinophils % (Auto) 1 % (0-10); Hematocrit 33.8 % (41.0-53.0); Hemoglobin 11.7 g/dL (13.5-16.0); Immature Granulocytes Auto 0.03 Thou/mm3 (0.00-0.00); Lymphocytes # (Auto) 2.2 Thou/mm3 (1.0-4.8); Lymphocytes % (Auto) 25 % (10-50); Mean Corpuscular HGB Conc 34.6 g/dl (31.0-37.0); Mean Corpuscular Hemoglobin 29.8 pg (25.0-35.0); Mean Corpuscular Volume 86 fL (80-100); Monocytes # (Auto) 1.1 Thou/mm3 (0.0-0.8); Monocytes % (Auto) 12 % (0-12); Neutrophils # (Auto) 5.4 Thou/mm3 (1.8-7.7); Neutrophils % (Auto) 61 % (37-80); Nucleated Red Blood Cell # 0.00 Thou/mm3 (0.00-0.00); Nucleated Red Blood Cell % 0 /100 WBC (0); Platelet Count 214 Thou/mm3 (140-440); RDW Standard Deviation 40.0 fL (35.1-43.9); Red Blood Count 3.93 Miln/mm3 (4.50-5.90); White Blood Count 8.8 Thou/mm3 (3.8-10.6)
[2025-02-20 05:45] LABS: Glucose Estimated Average 120 mg/dL (80-131); Hemoglobin A1C 5.8 % Hgb (4.8-6.0)
[2025-02-20 06:17] LABS: Alanine Aminotransferase < 7 U/L (10-49); Albumin, Serum 3.6 gm/dL (3.4-4.8); Albumin/Globulin Ratio 1.9 (1.2-2.2); Alkaline Phosphatase 90 U/L (46-116); Anion Gap 6 (7-16); Aspartate Amino Transferase 22 U/L (0-34); BUN/Creatinine Ratio 7 Ratio (12-20); Bilirubin,Total 0.5 mg/dL (0.3-1.2); Blood Urea Nitrogen < 5 mg/dL (9-23); Calcium 8.2 mg/dL (8.3-10.6); Calcium (Corrected) 8.5 mg/dL (8.5-10.1); Carbon Dioxide 22.7 mMol/L (20.0-31.0); Cardiac Risk Estimate 2.9 RATIO (4.0-6.7); Chloride 103 mMol/L (98-107); Cholesterol 126 mg/dL (132-200); Creatinine (Component) 0.7 mg/dL (0.6-1.3); Estimated Creatinine Clearance 112.9 mL/min (>60); Globulin 1.9 gm/dL (2.3-3.5); Glucose 104 mg/dL (74-106); HDL Cholesterol 44 mg/dL (40-60); LDL Cholesterol,Calculated 60 mg/dL (0-130); Magnesium 1.8 mg/dL (1.6-2.6); Osmolality,Calculated 261 (275-295); Potassium 3.7 mMol/L (3.4-5.1); Sodium 132 mMol/L (136-145); Thyroid Stimulating Hormone 1.12 uIU/mL (0.55-4.78); Total Protein 5.5 gm/dL (5.7-8.2); Triglycerides 110 mg/dL (30-150); Troponin I < 0.020 ng/mL (0.0-0.045); eGFR > 60 See Note
[2025-02-20] MEDS: Norepinephrine/D5W 8mg/250ml 8 MG/250 ML BAG 6.666 MG IV (07:00)
--- NOTE | 2025-02-20 08:59 | PC.PT ---
Received PT eval order. Patient currently intubated. Will cancel PT evaluation at this time.
[2025-02-20] MEDS: levETIRAcetam INJ 100 MG/ML VIAL 5ML 500 MG IVP ×2 (09:06→20:31)
[2025-02-20] MEDS: DEXMEDETOMIDINE 400 MCG IVPB 400 MCG/100 ML BAG IV (09:44)
[2025-02-20] MEDS: HALOPERIDOL LACT INJ 5 MG/ML VIAL IV (09:46)
--- NOTE | 2025-02-20 11:20 | PC.RT ---
went into pt's room for EEG at 1100. Started setting pt up for the procedure but before I could actually get him fully set-up, Pt started waking up and thrashing around. Per MD Dobson wait on the EEG at this time and access the pt in the afternoon.
--- NOTE | 2025-02-20 12:18 | ESPR_ITS ---
Tele Neuro Progress Note Progress Note Date 02/20/25 Most Recent Vital Signs Last Vital Signs Temp 97.6 F 02/20/25 04:00 Pulse 61 02/20/25 11:45 Resp 14 02/20/25 11:15 BP 111/72 02/20/25 11:45 Pulse Ox 96 02/20/25 11:45 O2 Del Method Mechanical Ventilation 02/20/25 04:00 FiO2 30 02/20/25 10:48 Laboratory-Coagulation Panel PT 10.9 Seconds (9.0-12.2) 02/19/25 21:40 INR 1.0 (0.9-1.3) 02/19/25 21:40 APTT 21.6 Seconds (22.0-36.0) L 02/19/25 21:40 Progress Note Narrative [facility] TeleNeurology Consult Services Routine Consult Follow-Up Patient Name:???Shahid Wallace Date of :???1965 Identification Number:??? Date of Service:???02/20/2025 11:31:03 Diagnosis?I63.89 - Cerebrovascular accident (CVA) due to other mechanism ([facility]) Impression 59 year old man with history of schizophrenia presenting with acute unresponsiveness. Initial exam shows confused aphasic patient with right facial droop and slurred speech. There is concern that when he initially presented he had clonic movement of the right side. He was agitated requiring intubation and sedation. He has now been extubated. He still has very minor right lower facial droop and also has impaired language which is concerning for stroke versus postictal aphasia. Recommend that he stay on antiseizure medication in the meantime pending review of brain MRI. I also recommend checking EEG. If postthrombolytic CT head does not show any evidence of hemorrhage then recommend initiating antiplatelet therapy. Recommendations # LMCA stroke syndrome s/p TNK Routine post Thrombolytic monitoring including neuro checks and blood pressure control during/after treatment Monitor blood pressure Check blood pressure and neuro assessment every 15 min for 2 h, then every 30 min for 6 h, and finally every hour for 16 h. Manage Blood Pressure per post Thrombolytic protocol. ? Follow designated hospital protocol for admission and post thrombolytic care ? CT brain 24 hours post Thrombolytic ? NPO until swallowing screen performed and passed ? No antiplatelet agents or anticoagulants (including heparin for DVT prophyl axis) in first 24 hours ? No Jules catheter, nasogastric tube, arterial catheter or central venous catheter for 24 hr, unless absolutely necessary ? Blood pressure less than 180/105 however, would also recommend keeping MAP above 65 to prevent hypoperfusion Telemetry Echocardiogram with bubble If repeat head CT does not show any evidence of hemorrhage, okay to start aspirin 81 mg daily [address] head CT and notify neurology immediately for any worsening of the neurological status Atorvastatin 40mg Maintain Euglycemia #Seizure Routine EEG Continue Keppra 500 mg twice daily Seizure precautions Administer 2 mg IV Ativan for any breakthrough seizure Brain MRI without contrast when able Monitor for withdrawal ? Our recommendations are outlined below Diagnostic Studies :MRI head without contrastCT without contrast at 24 hoursRoutine EEG Antithrombotic Medication :Hold antithrombotics for now.Statins for LDL goal less than 70 Anticoagulant Medication :Hold all anticoagulation Nursing Recommendations :IV Fluids, avoid dextrose containing fluids, Maintain euglycemiaNeuro checks q4 hrs x 24 hrs and then per shiftHead of bed 30 degreesContinue with Telemetry Consultations :Recommend Speech therapy if failed dysphagia screenPhysical therapy/Occupational therapy DVT Prophylaxis :Choice of Primary Team Disposition :Neurology will follow Subjective Patient was brought by EMS for symptoms of witnessed loss of consciousness. 59 year old man with history of schizophrenia presenting after unresponsiveness at home, now starting to wake up. LKW 30 minutes prior to arrival; family witnessed loss of consciousness. No reported convulsions. Not on any blood thinners per EMS. Sister reports that he is losing a lot of weight lately. She also verifies that he has no history of ischemic stroke or ICH, no recent surgeries or head trauma, and no GI hemorrhage. Needle Time: 02/19/2025 22:49:58 ? Hospital Course 02/20-- he was intubated and sedated due to agitation. He has not had any witnessed seizures. He is on precedex. He is on levo due to soft blood pressure in the setting of sedation. He has shown full strength. ? Imaging CT head : No acute abnormalities Labs Lactate 1.2 LDL 60 A1c 5.8 ? Examination BP(111/72),?Pulse(61), 1A: Level of Consciousness - Alert; keenly responsive?+ 0 1B: Ask Month and Age - Could Not Answer Either Question Correctly?+ 2 1C: Blink Eyes & Squeeze Hands - Performs 0 Tasks?+ 2 2: Test Horizontal Extraocular Movements - Normal?+ 0 3: Test Visual Saeg - No Visual Loss?+ 0 4: Test Facial Palsy (Use Grimace if Obtunded) - Minor paralysis (flat nasolabial fold, smile asymmetry)?+ 1 5A: Test Left Arm Motor Drift - No Drift for 10 Seconds?+ 0 5B: Test Right Arm Motor Drift - No Drift for 10 Seconds?+ 0 6A: Test Left Leg Motor Drift - No Drift for 5 Seconds?+ 0 6B: Test Right Leg Motor Drift - No Drift for 5 Seconds?+ 0 7: Test Limb Ataxia (FNF/Heel-Osman) - No Ataxia?+ 0 8: Test Sensation - Normal; No sensory loss?+ 0 9: Test Language/Aphasia - Mild-Moderate Aphasia: Some Obvious Changes, Without Significant Limitation?+ 1 10: Test Dysarthria - Mild-Moderate Dysarthria: Slurring but can be understood?+ 1 11: Test Extinction/Inattention - No abnormality?+ 0 NIHSS Score:?7 ? This consult was conducted in real time using interactive audio and video technology. Patient was informed of the technology being used for this visit and agreed to proceed. Patient located in hospital and provider located at home/office setting. Telehealth Neurology consultation was provided. I spent 30 minutes providing telehealth care. This includes time spent for face to face visit via telemedicine, review of medical records, imaging studies and discussion of findings with providers, the patient and/or family. Dr Flavia Rdz [facility] For Inpatient follow-up with [facility] physician please call [facility] at . As we are not an outpatient service for any post hospital discharge needs please contact the hospital for assistance. If you have any questions for the [facility] physicians or need to reconsult for clinical or diagnostic changes please contact us via [facility] at Signature :?Flavia Rdz ?
[2025-02-20] MEDS: NICOTINE PATCH 21 MG/24 HR PATCH.TD24 TOP (12:30)
[2025-02-20] MEDS: OLANZapine INJ 10 MG, Sterile Water 2.1 ML IM (12:55)
--- NOTE | 2025-02-20 17:47 | PD.RESPRO ---
Documentation for date of: 02/20/25 Subjective Subjective Interval history: This patient is a 59-year-old male with past medical history of schizophrenia on multiple antipsychotic, active smoker brought in by EMS to ED on 02/19/2025 with chief complaint of altered mental status. Patient's baseline is AO x 3 per patient's sister. EMS reported that patient was noted to be found on floor with foaming around mouth and right facial droop. On arrival, patient's blood sugar were 123 mg/dL and blood pressure was 150/80. Patient was combative and confused. He was given Versed 2 mg x 1. Patient's GCS was 8 there for was immediately intubated to protect airways. He was not hypoxic. Majority of the history was taken from patient's sister Rema Blackmon who reported that patient last well-known time was 9 PM. She reported the patient started feeling weak and started to pass out and she helped him to lay on the floor without hitting his head and suddenly patient started having right arm [id number] movement with foaming around the mouth. No jerking of the body or urine dribbling or passing of stool was noticed per patient's sister. She also stated the patient had unusual sleep of 4 hours in the afternoon prior to this episode. Denies any previous history of similar episode. She stated that patient is usually AO x 3. Patient's sister showed me the videos of patient's arm movement [id number]. No gross injuries were seen. Patient is also noncompliant with his medications. No history of seizures. He also endorsed abdominal pain and chronic cough dry in nature per patients' sister few days ago. Patient follows urgent care clinic for PCP follow-up and follow mental health with Dr. Kramer as outpatient for schizophrenia management. ED course: In the ED, patient was initially combative and was given Versed 2 mg x 1. Patient was confused with a GCS of 8 and was intubated with the help of etomidate 4 mg for induction and succinylcholine 100 mg for paralysis. Initial blood pressure was 137/100, heart rate 95, respiratory 20 and afebrile. He was saturating on mechanical ventilator. AC/VC mode Vt 400 ,flow 65 RR 20 PEEP 5 Fio2 30.Patient was started on sedation with propofol and fentanyl. Stroke alert was initiated. Teleneuro was consulted.Per teleneuro note, NIHSS score 7, examination showed confused aphasic patient with right facial droop and slurred speech. Differentials include stroke, TIA, seizure, postictal state, metabolic encephalopathy, medication effect. Patient was within the window of thrombolytics and TNK was recommended along with MRI brain. Tenecteplase was given dose 19.8 mg. Neurochecks with blood pressure check recommended. Neurochecks every 15 min for 2 hours and every 30 for 6 hours and finally every hour for [address] brain 24-hour postthrombolytic. N.p.o. until swallow screen performed and passed. No anticoagulation was recommended. No Jules catheter, NG tube or arterial cath unless needed. Bedside swallow evaluation. Head of bed elevation less than 30 degrees. Euglycemia. DVT prophylaxis with SCDs. EKG showed sinus rhythm with QTc 433. No acute ST-T changes seen. Imaging: Head CT showed no acute changes. Head and neck CT was negative. Patient is admitted to ICU for further management of acute encephalopathy likely due to stroke/metabolic/seizures. 02/20/2025: Patient is seen and examined at bedside in the ICU. Sedated and mechanically ventilated, AC VC mode. GCS is E1VtM3. Vitals are stable. Patient was started on Levophed, low-dose to maintain MAP greater than 65 mmHg. Later stopped the sedatives and started on spontaneous breathing trial as the patient is hemodynamically stable. Immediately after stopping sedatives, patient became agitated for which patient was given a dose of Haldol and later patient still remained agitated, likely due to the endotracheal tube. Patient was started on Precedex drip. As patient passed spontaneous breathing trial, patient was extubated and was given a dose of olanzapine. Later slowly titrated down the Precedex drip and stopped it in the evening also titrated down on the Levophed to 0.03, will discontinue it slowly. Ordered bedside swallow screen and we will start him on clear liquid diet, will advance as tolerated. Pending repeat head CT, 24 hours after thrombolysis which will be done around 10:50 PM. EEG is done, pending report. Resumed all his home schizophrenic medications. EKG showed QT interval of 433. If the patient is found to have no hemorrhage on the repeat head CT and continues to be hemodynamically stable, will downgrade patient to floors for further management. Teleneurology is consulted and is following the recommendations Exam Vital Signs Temp Pulse Resp BP Pulse Ox O2 Del Method FiO2 98.5 F 62 15 125/82 95 Room Air 30 02/20/25 16:00 02/20/25 17:31 02/20/25 17:31 02/20/25 17:31 02/20/25 17:31 02/20/25 16:00 02/20/25 10:48 Narrative Exam General: Awake. HEENT: Normocephalic, atraumatic, mucous membranes moist. Heart: Regular rate and rhythm, no murmurs. Lungs: Clear to auscultation with no wheezing or crackles. Abdomen: Soft, nondistended, nontender, positive bowel sounds. ?No guarding or rebound tenderness. Neurologic: Alert and oriented x3, no gross neurological deficit, and patient able to move all 4 extremities. Extremities: No edema. Skin: No rash or ecchymoses. Objective Labs 02/23/25 04:48 02/23/25 04:48 Labs: Laboratory Results - last 24 hr 02/19/25 02/19/25 02/19/25 00:00 21:40 22:49 WBC 7.3 RBC 4.37 L Hgb 13.3 L Hct 37.8 L MCV 87 MCH 30.4 MCHC 35.2 RDW Std Deviation 39.9 Plt Count 199 Neut % (Auto) 71 Lymph % (Auto) 21 Cowley % (Auto) 7 Eos % (Auto) 0 Baso % (Auto) 1 Neut # (Auto) 5.2 Lymph # (Auto) 1.5 Cowley # (Auto) 0.5 Eos # (Auto) 0.0 Baso # (Auto) 0.0 Immature Gran # (Auto) 0.02 H Absolute Nucleated RBC 0.00 Immature Gran % 0 Nucleated RBC % 0 PT 10.9 INR 1.0 APTT 21.6 L Puncture Site ABG pH ABG pCO2 ABG pO2 ABG HCO3 ABG O2 Saturation ABG Base Excess FiO2 Sodium 130 L Potassium 5.0 Chloride 99 Carbon Dioxide 21.1 Anion Gap 10 BUN 6 L Creatinine 0.8 Estim Creat Clear Calc 107.8 eGFR > 60 BUN/Creatinine Ratio 8 L Glucose [address] Glu mg/dL Hemoglobin A1c Calculated Osmolality 260 L Lactic Acid Calcium 9.7 Corrected Calcium 9.7 Magnesium 1.8 Total Bilirubin 0.5 AST 20 ALT 8 L Alkaline Phosphatase 105 Total Creatine Kinase 509 H Troponin I < 0.020 B-Natriuretic Peptide 21 Total Protein 6.8 Albumin 4.3 Globulin 2.5 Albumin/Globulin Ratio 1.7 Triglycerides Cholesterol LDL Cholesterol, Calc HDL Cholesterol Cholesterol/HDL Ratio TSH Ur Collection Type Catheter Urine Color Lt-Yellow Urine Clarity Clear Urine pH 6.5 Ur Specific Hodges 1.019 Urine Protein Trace Urine Glucose (UA) Negative Urine Ketones 1+ A Urine Blood Negative Urine Nitrite Negative Urine Bilirubin Negative Urine Urobilinogen (Auto) Negative Ur Leukocyte Esterase Negative Urine RBC 1 Urine WBC 2 Ur Squamous Epith Cells 0 Urine Bacteria None Urine Opiates Screen Negative Urine Fentanyl Screen Negative Ur Barbiturates Screen Negative U Amphetamin/Meth Scrn Negative U Benzodiazepines Scrn Positive A U Cocaine Metab Screen Negative U Marijuana (THC) Screen Negative Ethyl Alcohol < 3.0 02/20/25 02/20/25 02/20/25 01:08 04:25 04:52 WBC 8.8 RBC 3.93 L Hgb 11.7 L Hct 33.8 L MCV 86 MCH 29.8 MCHC 34.6 RDW Std Deviation 40.0 Plt Count 214 Neut % (Auto) 61 Lymph % (Auto) 25 Cowley % (Auto) 12 Eos % (Auto) 1 Baso % (Auto) 1 Neut # (Auto) 5.4 Lymph # (Auto) 2.2 Cowley # (Auto) 1.1 H Eos # (Auto) 0.0 Baso # (Auto) 0.0 Immature Gran # (Auto) 0.03 H Absolute Nucleated RBC 0.00 Immature Gran % 0 Nucleated RBC % 0 PT INR APTT Puncture Site Right Radial Right Radial ABG pH 7.29 L 7.32 L ABG pCO2 46 45 ABG pO2 90 100 ABG HCO3 22 23 ABG O2 Saturation 97 98 ABG Base Excess -5 L -3 FiO2 21 30 Sodium 132 L Potassium 3.7 D Chloride 103 Carbon Dioxide 22.7 Anion Gap 6 L BUN < 5 L Creatinine 0.7 Estim Creat Clear Calc 112.9 eGFR > 60 BUN/Creatinine Ratio 7 L Glucose [address] Glu mg/dL 120 Hemoglobin A1c 5.8 Calculated Osmolality 261 L Lactic Acid 1.2 Calcium 8.2 L D Corrected Calcium 8.5 Magnesium 1.8 Total Bilirubin 0.5 AST 22 ALT < 7 L Alkaline Phosphatase 90 Total Creatine Kinase Troponin I < 0.020 B-Natriuretic Peptide Total Protein 5.5 L Albumin 3.6 D Globulin 1.9 L Albumin/Globulin Ratio 1.9 Triglycerides 110 Cholesterol 126 L LDL Cholesterol, Calc 60 HDL Cholesterol 44 Cholesterol/HDL Ratio 2.9 L TSH 1.12 Ur Collection Type Urine Color Urine Clarity Urine pH Ur Specific Hodges Urine Protein Urine Glucose (UA) Urine Ketones Urine Blood Urine Nitrite Urine Bilirubin Urine Urobilinogen (Auto) Ur Leukocyte Esterase Urine RBC Urine WBC Ur Squamous Epith Cells Urine Bacteria Urine Opiates Screen Urine Fentanyl Screen Ur Barbiturates Screen U Amphetamin/Meth Scrn U Benzodiazepines Scrn U Cocaine Metab Screen U Marijuana (THC) Screen Ethyl Alcohol ABG Interpretation ABG results: 02/20/25 02/20/25 01:08 04:52 ABG pH 7.29 L 7.32 L ABG pCO2 46 45 ABG pO2 90 100 ABG HCO3 22 23 ABG O2 Saturation 97 98 ABG Base Excess -5 L -3 Quality Measures Quality Measures stroke Suspected type of Stroke: Acute Ischemic Tenecteplase given: within 60 min of arrival Rehab services: PT evaluation ordered VTE Prophylaxis: mechanical Antithrombotic by day 2:: contraindicated (describe) Statin ordered: not ordered Anticoagulation ordered for A-fib or flutter (current or hx): not indicated Assessment & Plan Assessment Current Active Medications: Generic Name Dose Route Start Last Admin Trade Name Freq PRN Reason Stop Dose Admin Atorvastatin Calcium 40 mg 02/20/25 21:00 Atorvastatin Calcium 20 Mg Tablet NG 03/22/25 20:59 HS CARLA Benztropine Mesylate 2 mg 02/20/25 21:00 Benztropine 0.5 Mg Tablet PO 03/22/25 20:59 BID CARLA Dextrose 25 ml 02/20/25 00:17 Dextrose 50%-Water Inj 50 Ml Syringe IV 03/22/25 00:16 Q15MIN PRN BG 50-70 responsive npo pt Dextrose 50 ml 02/20/25 00:17 Dextrose 50%-Water Inj 50 Ml Syringe IV 03/22/25 00:16 Q15MIN PRN BG <50 OR BG <70 & pt unresponsive Glucagon 1 mg 02/20/25 00:17 Glucagon Inj 1 Mg Vial IM Q15MIN PRN BG <70, and no IV access Nicardipine/Sodium Chloride 20 mg in 200 mls @ 50 mls/hr 02/19/25 22:26 Cardene Ivpb IV 03/21/25 22:25 .Q4H PRN Per Nicardipine Stroke Protocol Protocol 5 MG/HR Sodium Chloride 1,000 mls @ 75 mls/hr 02/20/25 00:09 02/20/25 14:40 Ns IV 03/22/25 00:08 75 mls/hr .Q21P31H CARLA Administration Fentanyl Citrate 2,500 mcg in 250 mls @ 2.5 mls/hr 02/20/25 05:58 Sublimaze Inj 2,500 Mcg/250 Ml Bag IV 02/24/25 21:59 .Q24H PRN PER PROTOCOL Protocol 25 MCG/HR Dexmedetomidine/Sodium Chloride 400 mcg in 100 mls @ 3.555 mls/hr 02/20/25 10:04 02/20/25 12:21 Precedex Ivpb IV 03/22/25 10:03 0.8 mcg/kg/hr .Q24H PRN 14.22 mls/hr Per PROTOCOL Titration Protocol 0.2 MCG/KG/HR Norepinephrine/Dextrose 8 mg in 250 mls @ 6.666 mls/hr 02/20/25 10:53 Levophed In D5w 8mg/250ml IV 03/22/25 05:10 .Q24H PRN PER PROTOCOL Protocol 0.05 MCG/KG/MIN Labetalol HCl 10 mg 02/19/25 21:58 Labetalol Inj 5 Mg/Ml Vial 20 Ml IVP Q15M PRN HYPER Levetiracetam 500 mg 02/20/25 09:00 02/20/25 09:06 Levetiracetam Inj 100 Mg/Ml Vial 5ml IVP 03/22/25 08:59 500 mg Q12HR CARLA Administration Midazolam HCl 2 mg 02/20/25 06:24 Midazolam Inj 1 Mg/Ml Vial 2 Ml IVP 02/25/25 06:23 Q1HR PRN AGITATION OR ANXIETY Nicotine 21 mg 02/20/25 12:15 02/20/25 12:30 Nicotine Patch 21 Mg/24 Hr Patch.Td24 TOP 03/22/25 12:14 21 mg QDAY CARLA Administration Ondansetron HCl 4 mg 02/20/25 00:10 Ondansetron Inj 2 Mg/Ml Inj 2 Ml IVP 03/22/25 00:09 Q6H PRN NAUSEA OR VOMITING Protocol Pantoprazole Sodium 40 mg 02/20/25 09:00 02/20/25 09:07 Pantoprazole Inj 40 Mg Vial IVP 03/22/25 08:59 40 mg QDAY CARLA Administration Quetiapine Fumarate 100 mg 02/20/25 21:00 Quetiapine Fumarate 100 Mg Tablet PO 03/22/25 20:59 HS CARLA Risperidone 4 mg 02/20/25 21:00 Risperidone 1 Mg Tablet PO 03/22/25 20:59 HS CARLA Trazodone HCl 300 mg 02/20/25 21:00 Trazodone Hcl 50 Mg Tablet PO 03/22/25 20:59 HS CARLA Plan Summary: This patient is a 59-year-old male with past medical history of schizophrenia on multiple antipsychotic, active smoker brought in by EMS to ED on 02/19/2025 with chief complaint of altered mental status. Patient's baseline is AO x 3 per patient's sister. EMS reported that patient was noted to be found on floor with foaming around mouth and right facial droop. Patient was combative and confused. He was given Versed 2 mg x 1. Patient's GCS was 8 due to confusion therefore was immediately intubated to protect airways.Patient is admitted to ICU for further management of acute encephalopathy likely due to stroke/metabolic/seizures. Neurology #Acute encephalopathy, resolved Differential diagnosis: Stroke vs TIA vs seizures vs Antipsychotic medication side effect -Patient presented with altered mental status. Last well-known time was 9 PM. Patient was brought in by EMS on 9:30. Within window of TNK and no complications. Right facial droop and slurred speech was endorsed by patient's sister and EMS. -U tox positive for benzodiazepines, likely from the medications given in the hospital. Blood alcohol level was negative. Troponin I was negative. Lactic acid 1.2. -Stroke alert was initiated. Teleneuro was consulted.Per teleneuro note, NIHSS score 7, examination showed confused aphasic patient with right facial droop and slurred speech. Patient was within the window of thrombolytics and TNK was recommended along with MRI brain. -Tenecteplase was given dose 19.8 mg. Diagnostic Test: Head CT showed no acute changes. Head and neck CT showed no LVO. EKG showed sinus rhythm. No acute ST-T changes. EEG is ordered, pending Treatment Plan: -Post TNK, admitted to ICU -Neurochecks with blood pressure check recommended. -Neurochecks every 15 min for 2 hours and every 30 for 6 hours and finally every hour for 16 hours.. -CT brain 24-hour postthrombolytic at 10:50 pm on 02/20/2025 -N.p.o. until swallow screen performed and passed. -No anticoagulation was recommended for 24hrs and bleeding is ruled out on Head CT. -No Jules catheter, NG tube or arterial cath unless needed. -Head of bed elevation less than 30 degrees. -DVT prophylaxis with SCDs. -Euglycemia -Allow permissive hypertension -Tele neuro will follow - Neurologist, Dr Torres consulted, appreciate recommendations - MRI brain stroke protocol and EEG - PT ordered - Morning labs including lipid panel, A1c, TSH - within normal limits - Aspiration precautions -Treatment Review: Patient is extubated and is doing well. Swallow screen at the bedside is ordered and will start on clear diet with diet, advance as tolerated. Will repeat head CT at 10:50 PM and if there is no hemorrhage, will downgrade to floors for further management. After 24 hours, recommended to start antiplatelets, atorvastatin. Patient is also suspected to have seizure activity for which patient was started on Keppra, EEG is pending #History of schizophrenia - No suicidal ideation in past couple of days per patient's sister. - Home medications listed: Banophen 25 mg twice daily, benztropine 2 mg once daily, Invega sustena 234 mg every 4 weeks, Risperdal 4 mg at bedtime, Seroquel 100 mg at bedtime as needed, trazodone 300 mg at bedtime - Treatment plan : Resumed his home medications. Started on olanzapine as needed. Cardiovascular #Hypotension related to sedation, resolved -Patient's blood pressure dropped with propofol and fentanyl. Initially was started on low-dose Levophed DDx: Related to sedation Diagnostic Test: Lactic acid was normal. No infection noted on chest x-ray. Treatment Plan: - Levophed is slowly titrated downwards and stopped - Stopped propofol and fentanyl - Recommend to continue blood pressures and maintain SBP less than 180 Respiratory #Intubated and mechanically ventilated extubated on 02/20/2025 - In the ED, patient was initially combative and was given Versed 2 mg x 1. Patient was confused with a GCS of 8 and was intubated with the help of etomidate 4 mg for induction and succinylcholine 100 mg for paralysis. -Initial blood pressure was 137/100, heart rate 95, respiratory 20 and afebrile. He was saturating on mechanical ventilator. -Patient was started on sedation with propofol and fentanyl. DDx: Related to acute encephalopathy, medication noncompliance, history of schizophrenia Treatment Plan: - Patient was started on spontaneous breathing trial on 02/20/2025, later extubated and tolerated well #History of COPD #Active smoker -Patient smokes cigarettes 2 packs/day. Diagnostic tests: Chest x-ray was negative. Treatment plan: -Discussed regarding nicotine patch. Patient can follow-up outpatient for Varencline cravings once downgraded to floors GI # Prophylaxis for peptic ulcer disease - On Protonix 40 Mg IV push daily Renal # Hypoosmolar hyponatremia -Chemistry panel showed sodium 130 DDx: Related to medications Diagnostic Test: CMP Treatment Plan: -Will continue to monitor sodium and replete as needed Heme #Normocytic anemia Labs revealed white count 7.3, hemoglobin 13.3, hematocrit 37.8 Diagnostic Test: CBC. INR was 1.0 Treatment Plan: -PRBC if hemoglobin drops below 7 -Follow-up with morning CBC Treatment Review: Endo No significant ID No active issue DVT prophylaxis: SCDs GI prophylaxis: Protonix 40 IV daily Diet: Clear liquid, advance as tolerated Lines: Peripherals CODE STATUS: Full code Reason of hospitalization: Admitted for workup and management of acute encephalopathy related to stroke/seizures/metabolic/medications. Patient plan of care was discussed with the Travel Med Surg Rn, Dr. Olya Hernandez, PGY2 Attending Provider Attestation/Addendum Patient seen and examined with the above resident, Ray Hernandez MD. I agree with the findings, assessment, and plan of care as documented except for any differences below. Reviewed video of events at home brought in by sister. Patient with repetitive motion though consciousness is lacking intermittently. Syncope/ seizure suspected and now on appropriate therapy with AE agent. Also successfully extubated, severe agitation intermittently but gas exchange and mentation adequate prior to extubation with facilitation by precedex. Patient's mentation did improve with time and loading of antipsychotics, able to wean off precedex. Monitor in ICU until 24 post TNK prior to transfer to the floor. BP control with need for NS bolus and levophed briefly to avoid excessive hypotension as well. I personally completed rounds with neurology (tele) and we agree that findings are inconsistent with CVA, follow up imaging to be completed per protocol given TNK was administered. Resume home medications, TD from antipsychotics also possible etiology. EEG to be completed when he is stable from agitation, RT unable to apply this afternoon due to agitation but can be completed during hospital course on the floor. Patient may have not been taking medications as precipitant with resuming doing per sister. Continue to monitor for underlying precipitant. D/W neurology, family at bedside, and stroke RN. Total critical care time: 50 minutes for review of physiologic parameters, directing plan of care, coordination of care with multiple specialists, and counseling patient/ family at bedside. This is exclusive of time spent teaching housestaff or performing any separate billable procedures. Patient remains at significant risk for further morbidity/ mortality warranting close monitoring and care only available in the ICU. Critical care services for acute encephalopathy, acute respiratory failure, CVA, and seizures.
[2025-02-20] MEDS: ONDANSETRON INJ 2 MG/ML INJ 2 ML 4 MG IVP (19:24)
--- NOTE | 2025-02-20 19:51 | PC.NURSE ---
at 0944, pt became combative, precedex started per Dr. Dobson at bedside, RASS goal of 0, per Dr. Dobson MAP goal for levo >90, at 1730, MAP goal changed for levo to MAP goal of > 65, levo and precedex titrated off per protocol and by MD at bedside
[2025-02-20] MEDS: ATORVASTATIN CALCIUM 20 MG TABLET 40 MG NG (20:26)
[2025-02-20] MEDS: BENZTROPINE 0.5 MG TABLET 2 MG PO (20:26)
--- NOTE | 2025-02-20 22:50 | XR_ITS ---
Examination: CT brain head without contrast. 2-D sagittal coronal reconstructions Date and time of exam:February 20, 2025 10:39 PM Comparison February 19, 2025 INDICATIONS: Stroke alert, 24 hours post or lytic therapy altered mental status CTDI: vol (mGy):52.40 DLP: (mGycm):1064 Technique: Multiple CT axial sections of the brain have been obtained, 5 mm slice thickness. Contrast has not been administered. 2-D sagittal, coronal reconstructions have been obtained Low dose protocols were performed. One or more of the following dose reduction techniques were used; automated exposure control, adjustment of the mA and/or KV according to patient size, use of iterative reconstruction technique. Findings: No significant ventricular enlargement. Intra-axial or extra-axial hemorrhage density is not seen. No mass effect or midline shift Basal cisterns are not remarkable. Fourth ventricle is midline. Cranial vault intact. Impression: No interval acute hemorrhage, mass effect or midline shift
--- NOTE | 2025-02-20 23:40 | PD.RESEVENT ---
Documentation for date of: 02/20/25 Event Note Event Note: About 2330, the patient's head CT 24hr post TNK was negative for acute hemorrhage and as per the ICU team, the patient was downgraded to telemetry floor. Patient's HPI, vitals and physical findings including management plan was discussed with PGY [address] Fam. He accepted the patient downgrade to be assigned to hospitalist team in AM The patient's management plan was discussed with my attending physician MD Esvin Kimbrough MD, PGY3
[2025-02-21] VITALS (8 sets, daily range): BP systolic 109–144; BP diastolic 53–89; PULSE 68–102; RESP 13–95; TEMP 36.2–36.9; O2SAT 93–99; BMI 21.9
--- NOTE | 2025-02-21 00:09 | PD.RESEVENT ---
Documentation for date of: 02/21/25 Event Note Event Note: 59-year-old male with history of schizophrenia admitted on 02/19/25 for altered mental status, found to have right facial droop and foaming at the mouth concerning for acute neurological event. Patient was intubated in ED for low GCS (8) and received tenecteplase (19.8 mg) after teleneurology consultation (NIHSS 7). Extubated on 02/20/2025 after successful spontaneous breathing trial and was hemodynamically stable off vasopressors. Head CT 24 hours post-thrombolysis, done at 10:50 PM on 02/20/2025, showed no acute hemorrhage. I evaluated the patient overnight on the floor. He was awake but sleepy, endorsed feeling ?fine? but stated he was tired and preferred to go back to sleep. No new complaints. Will hand off to the morning team. ----- Plan discussed with attending physician Dr. Snehal Rodriguez MD PGY-1 Internal Medicine
--- NOTE | 2025-02-21 04:08 | EEG_ITS ---
EEG Report EEG Interpretation [facility] Tele[facility]urology Consult Services Routine EEG Report Demographics:Patient Name:???Shahid Wallace Date of :???1965 Identification Number:??? Study Times: Study Start Time:???02/20/2025 16:30:00 Study End Time:???02/20/2025 16:51:00 Duration:???21?minutes Indication(s):Seizures Technical Summary: This EEG was performed utilizing standard International 10-20 System of electrode placement. One channel electrocardiogram was monitored. Data were obtained and interpreted utilizing referential montage recording, with reformatting to longitudinal, transverse bipolar, and referential montages as n ecessary for interpretation. State(s): ?Drowsy ?Asleep EKG:?Single Lead EKG was Not performed Activation Procedures: Photic Stimulation:?Performed : No Photic Driving EEG Description: Interpretation of this EEG was limited by loose electrodes. There was no well- developed posterior rhythm. The background consisted of bilateral, diffuse, asynchronous admixed theta and delta range activity. The record showed variability. There was no normal sleep architecture observed. There were no focal, lateralized or epileptiform abnormalities. ? Impression: This is an abnormal EEG due to moderate generalized slowing. Clinical Correlation: No seizures or epileptiform abnormalities were captured during this recording. ? ?The presence of moderate generalized slowing is supportive of a moderate en cephalopathy. Of note, these findings do not exclude a diagnosis of seizures. ? ?Interpretation of this study was limited due to electrode artifact. If clinical concern for subclinical seizures remains, I would recommend a repeat study. Dr lFavia Rdz It is not live continuous monitoring by [facility]. [facility] For Inpatient follow-up with [facility] physician please call [facility] at . As we are not an outpatient service for any post hospital discharge needs please contact the hospital for assistance. If you have any questions for the [facility] physicians or need to reconsult for clinical or diagnostic changes please contact us via [facility] at . Signature :Ajit Rdz
[2025-02-21 05:46] LABS: Basophils # (Auto) 0.0 Thou/mm3 (0.0-0.2); Basophils % (Auto) 0 % (0-2.5); Eosinophils # (Auto) 0.0 Thou/mm3 (0.0-0.5); Eosinophils % (Auto) 0 % (0-10); Hematocrit 34.3 % (41.0-53.0); Hemoglobin 12.1 g/dL (13.5-16.0); Immature Granulocytes Auto 0.02 Thou/mm3 (0.00-0.00); Lymphocytes # (Auto) 1.4 Thou/mm3 (1.0-4.8); Lymphocytes % (Auto) 21 % (10-50); Mean Corpuscular HGB Conc 35.3 g/dl (31.0-37.0); Mean Corpuscular Hemoglobin 30.4 pg (25.0-35.0); Mean Corpuscular Volume 86 fL (80-100); Monocytes # (Auto) 0.8 Thou/mm3 (0.0-0.8); Monocytes % (Auto) 12 % (0-12); Neutrophils # (Auto) 4.5 Thou/mm3 (1.8-7.7); Neutrophils % (Auto) 67 % (37-80); Nucleated Red Blood Cell # 0.00 Thou/mm3 (0.00-0.00); Nucleated Red Blood Cell % 0 /100 WBC (0); Platelet Count 184 Thou/mm3 (140-440); RDW Standard Deviation 40.6 fL (35.1-43.9); Red Blood Count 3.98 Miln/mm3 (4.50-5.90); White Blood Count 6.8 Thou/mm3 (3.8-10.6)
[2025-02-21 06:02] LABS: INR 1.0 (0.9-1.3); Partial Thromboplastin Time 29.1 Seconds (22.0-36.0); Prothrombin Time 11.4 Seconds (9.0-12.2)
[2025-02-21 06:41] LABS: Alanine Aminotransferase 10 U/L (10-49); Albumin, Serum 3.8 gm/dL (3.4-4.8); Albumin/Globulin Ratio 1.8 (1.2-2.2); Alkaline Phosphatase 96 U/L (46-116); Anion Gap 9 (7-16); Aspartate Amino Transferase 35 U/L (0-34); BUN/Creatinine Ratio 6 Ratio (12-20); Bilirubin,Total 0.7 mg/dL (0.3-1.2); Blood Urea Nitrogen < 5 mg/dL (9-23); Calcium 8.6 mg/dL (8.3-10.6); Calcium (Corrected) 8.8 mg/dL (8.5-10.1); Carbon Dioxide 21.9 mMol/L (20.0-31.0); Chloride 108 mMol/L (98-107); Creatinine (Component) 0.8 mg/dL (0.6-1.3); Estimated Creatinine Clearance 101.9 mL/min (>60); Globulin 2.1 gm/dL (2.3-3.5); Glucose 117 mg/dL (74-106); Magnesium 1.9 mg/dL (1.6-2.6); Osmolality,Calculated 275 (275-295); Phosphorous 2.9 mg/dL (2.4-5.1); Potassium 3.4 mMol/L (3.4-5.1); Sodium 139 mMol/L (136-145); Total Protein 5.9 gm/dL (5.7-8.2); eGFR > 60 See Note
[2025-02-21] MEDS: BENZTROPINE 0.5 MG TABLET 2 MG PO ×2 (08:33→21:02)
[2025-02-21] MEDS: POTASSIUM CHL 10 mEq IVPB 10 MEQ/100 ML BAG 100 MEQ IV ×4 (08:34→12:11)
[2025-02-21] MEDS: Magnesium Sulfate 4 GM Ivpb 4 GM/50 ML BAG IV (08:34)
[2025-02-21] MEDS: NICOTINE PATCH 21 MG/24 HR PATCH.TD24 TOP (08:34)
[2025-02-21] MEDS: levETIRAcetam INJ 100 MG/ML VIAL 5ML 500 MG IVP ×2 (08:34→21:02)
--- NOTE | 2025-02-21 14:26 | ESPR_ITS ---
<Statement entered by Max Duff MD - 02/21/25 15:58> Senior Resident Attestation: I supervised/discussed management plan with hospital intern physician Dr. Ngo, and was involved in the care of this patient. I personally saw and examined the patient and discussed the assessment and plan with the entire medicine team, including my attending. I agree with the assessment and plan as documented. No acute overnight events reported. Patient was seen and examined at the bedside. His mentation is improving. He complained only of mild dizziness. Pending brain MRI and EEG which will take place tomorrow. Continue current management and monitor patient. Patient's care was discussed with attending physician, Dr. Barbosa. Max Duff MD PGY-3. Documentation for date of: 02/21/25 Subjective Subjective Interval history: No overnight events. Evaluated at bedside. Pt downgraded from ICU. Extubated on 02/20. Per pt's sister at bedside, pt seems to return to his baseline, which consists of dysarthria, slow speech, and bradykinesia. Pt's sister also mentioned that 2 weeks ago there had been a dose adjustment to his Invega Sustenna. Pt is a/o x 3 with CSM intacted in all 4 extremities at the time of this encounter. No focal neuro deficit noted. Pending MRI and Echo. Exam Vital Signs Temp Pulse Resp BP Pulse Ox O2 Del Method FiO2 97.1 F 80 20 134/82 H 99 Room Air 30 02/21/25 12:00 02/21/25 12:00 02/21/25 12:00 02/21/25 12:02/21/25 12:00 02/21/25 12:02/20/25 10:48 Narrative Exam General: Awake. Bradykinetic. Slow speech. HEENT: Normocephalic, atraumatic, mucous membranes moist. Heart: Regular rate and rhythm, no murmurs. Lungs: Clear to auscultation with no wheezing or crackles. Abdomen: Soft, nondistended, nontender, positive bowel sounds. ?No guarding or rebound tenderness. Neurologic: Alert and oriented x3, no gross neurological deficit, and patient able to move all 4 extremities. Extremities: No edema. Skin: No rash or ecchymoses. Objective Labs 02/22/25 04:39 02/22/25 04:39 Labs: Laboratory Results - last 24 hr 02/21/25 05:05 WBC 6.8 RBC 3.98 L Hgb 12.1 L Hct 34.3 L MCV 86 MCH 30.4 MCHC 35.3 RDW Std Deviation 40.6 Plt Count 184 D Neut % (Auto) 67 Lymph % (Auto) 21 Weakley % (Auto) 12 Eos % (Auto) 0 Baso % (Auto) 0 Neut # (Auto) 4.5 Lymph # (Auto) 1.4 Weakley # (Auto) 0.8 Eos # (Auto) 0.0 Baso # (Auto) 0.0 Immature Gran # (Auto) 0.02 H Absolute Nucleated RBC 0.00 Immature Gran % 0 Nucleated RBC % 0 PT 11.4 INR 1.0 APTT 29.1 Sodium 139 Potassium 3.4 Chloride 108 H Carbon Dioxide 21.9 Anion Gap 9 BUN < 5 L Creatinine 0.8 Estim Creat Clear Calc 101.9 eGFR > 60 BUN/Creatinine Ratio 6 L Glucose 117 H Calculated Osmolality 275 Calcium 8.6 Corrected Calcium 8.8 Phosphorus 2.9 Magnesium 1.9 Total Bilirubin 0.7 AST 35 H ALT 10 Alkaline Phosphatase 96 Total Protein 5.9 Albumin 3.8 Globulin 2.1 L Albumin/Globulin Ratio 1.8 ABG Interpretation ABG results: 02/20/25 02/20/25 01:08 04:52 ABG pH 7.29 L 7.32 L ABG pCO2 46 45 ABG pO2 90 100 ABG HCO3 22 23 ABG O2 Saturation 97 98 ABG Base Excess -5 L -3 Quality Measures Quality Measures VTE prophylaxis and stroke Suspected type of Stroke: Acute Ischemic Tenecteplase given: within 60 min of arrival Rehab services: PT evaluation ordered VTE Prophylaxis: pharmaceutical Antithrombotic by day 2:: not indicated (describe) Statin ordered: not ordered Anticoagulation ordered for A-fib or flutter (current or hx): not indicated Assessment & Plan Assessment Current Active Medications: Generic Name Dose Route Start Last Admin Trade Name Freq PRN Reason Stop Dose Admin Atorvastatin Calcium 40 mg 02/20/25 21:00 02/20/25 20:26 Atorvastatin Calcium 20 Mg Tablet NG 03/22/25 20:59 40 mg HS CARLA Administration Benztropine Mesylate 2 mg 02/20/25 21:00 02/21/25 08:33 Benztropine 0.5 Mg Tablet PO 09/01/25 20:59 2 mg BID CARLA Administration Olanzapine 10 mg/ Sterile 0 mg 02/20/25 17:49 Water 2.1 ml IM 03/22/25 17:48 QDAY PRN AGITATION (SEVERE) Dextrose 25 ml 02/20/25 00:17 Dextrose 50%-Water Inj 50 Ml Syringe IV 03/22/25 00:16 Q15MIN PRN BG 50-70 responsive npo pt Dextrose 50 ml 02/20/25 00:17 Dextrose 50%-Water Inj 50 Ml Syringe IV 03/22/25 00:16 Q15MIN PRN BG <50 OR BG <70 & pt unresponsive Glucagon 1 mg 02/20/25 00:17 Glucagon Inj 1 Mg Vial IM Q15MIN PRN BG <70, and no IV access Labetalol HCl 10 mg 02/19/25 21:58 Labetalol Inj 5 Mg/Ml Vial 20 Ml IVP Q15M PRN HYPER Levetiracetam 500 mg 02/20/25 09:00 02/21/25 08:34 Levetiracetam Inj 100 Mg/Ml Vial 5ml IVP 03/22/25 08:59 500 mg Q12HR CARLA Administration Midazolam HCl 2 mg 02/20/25 06:24 Midazolam Inj 1 Mg/Ml Vial 2 Ml IVP 02/25/25 06:23 Q1HR PRN AGITATION OR ANXIETY Nicotine 21 mg 02/20/25 12:15 02/21/25 08:34 Nicotine Patch 21 Mg/24 Hr Patch.Td24 TOP 03/22/25 12:14 21 mg QDAY CARLA Administration Ondansetron HCl 4 mg 02/20/25 18:40 02/20/25 19:24 Ondansetron Inj 2 Mg/Ml Inj 2 Ml IVP 03/22/25 18:39 4 mg Q6HR PRN Administration NAUSEA OR VOMITING Protocol Pantoprazole Sodium 40 mg 02/22/25 09:00 Pantoprazole 40 Mg Tablet PO 03/24/25 08:59 QDAY CARLA Protocol Quetiapine Fumarate 100 mg 02/20/25 21:00 02/20/25 20:27 Quetiapine Fumarate 100 Mg Tablet PO 03/22/25 20:59 100 mg HS CARLA Administration Risperidone 4 mg 02/20/25 21:00 02/20/25 20:29 Risperidone 1 Mg Tablet PO 03/22/25 20:59 4 mg HS CARLA Administration Trazodone HCl 300 mg 02/20/25 21:00 02/20/25 20:29 Trazodone Hcl 50 Mg Tablet PO 03/22/25 20:59 300 mg HS CARLA Administration Plan This patient is a 59-year-old male with past medical history of schizophrenia on multiple antipsychotic, active smoker brought in by EMS to ED on 02/19/2025 with chief complaint of altered mental status. Patient's baseline is AO x 3 per patient's sister. EMS reported that patient was noted to be found on floor with foaming around mouth and right facial droop. Patient was combative and confused. He was given Versed 2 mg x 1. Patient's GCS was 8 due to confusion therefore was immediately intubated to protect airways. Patient was admitted to ICU for further management of acute encephalopathy likely due to stroke/metabolic/seizures. Downgraded to tele on 02/21. Pending Echo and MRI. #Acute encephalopathy - resolved #Stroke r/o Differential diagnosis: Stroke vs TIA vs seizures vs Antipsychotic medication side effect Patient presented with altered mental status. Last well-known time was 9 PM. Patient was brought in by EMS on 9:30. Within window of TNK and no complications. Right facial droop and slurred speech was endorsed by patient's sister and EMS. U tox positive for benzodiazepines, likely from the medications given in the hospital. Blood alcohol level was negative. Troponin I was negative. Lactic acid 1.2. Stroke alert was initiated. Teleneuro was consulted.Per teleneuro note, NIHSS score 7, examination showed confused aphasic patient with right facial droop and slurred speech. Patient was within the window of thrombolytics and TNK was recommended along with MRI brain. Tenecteplase was given dose 19.8 mg. Dx: - Head CT showed no acute changes. - Head and neck CT showed no LVO. - EKG showed sinus rhythm. No acute ST-T changes. - EEG is ordered, pending Tx: -Post TNK, admitted to ICU, downgraded to tele on 02/21. -Neurochecks with blood pressure check recommended. -Neuro checks q4 hrs x 24 hrs and then per shift. Continue with Telemetry -CT brain 24-hour postthrombolytic at 10:50 pm on 02/20/2025 showed no acute hemorrhage. -N.p.o. until swallow screen performed and passed. -Hold all anticoagulation per tele neuro -No Jules catheter, NG tube or arterial cath unless needed. -Head of bed elevation less than 30 degrees. -DVT prophylaxis with SCDs. -Euglycemia -Allow permissive hypertension -Tele neuro will follow - Neurologist, Dr Torres consulted, appreciate recommendations - Pending MRI brain stroke protocol and EEG - PT ordered - Morning labs including lipid panel, A1c, TSH - within normal limits - Aspiration precautions - started Aspirin 81mg PO QD, atorvastatin 40mg PO HS. - Recommend Speech therapy if failed dysphagia screen - Physical therapy/Occupational therapy #History of schizophrenia No suicidal ideation in past couple of days per patient's sister. Home medications listed: Banophen 25 mg twice daily, benztropine 2 mg once daily, Invega sustena 234 mg every 4 weeks, Risperdal 4 mg at bedtime, Seroquel 100 mg at bedtime as needed, trazodone 300 mg at bedtime Tx: - Resumed his home medications. Started on olanzapine as needed. #History of COPD #Active smoker Patient smokes cigarettes 2 packs/day. Dx: - Chest x-ray was negative. Tx: - Discussed regarding nicotine patch. Patient can follow-up outpatient for Varencline cravings once downgraded to floors #Normocytic anemia Initial hemoglobin 13.3, baseline Hgb ~13 Dx: - Daily CBC Tx: - PRBC if hemoglobin drops below 7 - Follow-up with morning CBC DVT prophylaxis: SCDs GI prophylaxis: Protonix 40 IV daily Diet: Cardiac diet Lines: Peripherals CODE STATUS: Full code Case discussed with my senior resident Dr. Duff Case discussed with my attending Dr. Familia Ngo, DO PGY 1 Attending Provider Attestation/Addendum I have examined the patient, reviewed labs and imaging findings, discussed the case with the resident(s), and reviewed entered orders. I agree with the plan of care as outlined in this note, with these additional summaries/recommendations: Patient seen at bedside. No acute overnight events. He is status post TNK and downgraded from intensive care unit. Repeat head CT did not reveal acute hemorrhage. Patient is pending MRI brain and echocardiogram with bubble study. Symptoms possibly related to acute CVA versus TIA versus medication induced from antipsychotics. There was reportedly seizure like activity noted prior to arrival and patient started on Keppra and tolerating well. EEG shows moderate encephalopathy. We will follow-up neuro recommendations on initiating dual antiplatelet therapy. Continue statin therapy. LDL at goal 60. Continue antipsychotics for now. Pending physical therapy consultation. Continue breathing treatments as needed for history of COPD. Patient updated on the plan and in agreement. All questions answered to satisfaction. Please see residents note for additional details and management. Dr. Familia MD
--- NOTE | 2025-02-21 14:51 | PD.TNEUROPRO ---
Tele Neuro Progress Note Progress Note Date 02/21/25 Most Recent Vital Signs Last Vital Signs Temp 97.1 F 02/21/25 12:00 Pulse 80 02/21/25 12:00 Resp 20 02/21/25 12:00 BP 134/82 H 02/21/25 12:00 Pulse Ox 99 02/21/25 12:00 O2 Del Method Room Air 02/21/25 12:00 FiO2 30 02/20/25 10:48 Laboratory-Coagulation Panel PT 11.4 Seconds (9.0-12.2) 02/21/25 05:05 INR 1.0 (0.9-1.3) 02/21/25 05:05 APTT 29.1 Seconds (22.0-36.0) 02/21/25 05:05 Progress Note Narrative [facility] TeleNeurology Consult Services Routine Consult Follow-Up Patient Name:???Shahid Wallace Date of :???1965 Identification Number:??? Date of Service:???02/21/2025 13:11:02 Diagnosis?I63.89 - Cerebrovascular accident (CVA) due to other mechanism ([facility]) Impression 59 year old man with history of schizophrenia presenting with acute unresponsiveness. He status post TNK on 02/19/25 Initial exam shows confused aphasic patient with right facial droop and slurred speech. There is concern that when he initially presented he had clonic movement of the right side. His mental status has significantly improved but he still has very mild right facial droop and slurred speech. EEG did not show any focal abnormalities but demonstrated generalized slowing. This was done the day he was extubated. His mental status has improved. MRI is currently pending. His presentation is concerning for seizure with postictal aphasia and right-sided weakness versus stroke Recommendations # LMCA stroke syndrome s/p TNK Continue Aspirin 81 mg daily Telemetry Echocardiogram with bubble Stat head CT and notify neurology immediately for any worsening of the neurological status Atorvastatin 40mg Maintain Euglycemia #Seizure Continue Keppra 500 mg twice daily Seizure precautions Administer 2 mg IV Ativan for any breakthrough seizure Brain MRI without contrast when able Monitor for withdrawal ? Our recommendations are outlined below Diagnostic Studies :MRI head without contrast Antithrombotic Medication :Aspirin 81 mg PO dailyStatins for LDL goal less than 70 Anticoagulant Medication :Hold all anticoagulation Nursing Recommendations :Neuro checks q4 hrs x 24 hrs and then per shiftContinue with Telemetry Consultations :Recommend Speech therapy if failed dysphagia screenPhysical therapy/Occupational therapy DVT Prophylaxis :Choice of Primary Team Disposition :Neurology will follow Subjective Patient was brought by EMS for symptoms of witnessed loss of consciousness. 59 year old man with history of schizophrenia presenting after unresponsiveness at home, now starting to wake up. LKW 30 minutes prior to arrival; family witnessed loss of consciousness. No reported convulsions. Not on any blood thinners per EMS. Sister reports that he is losing a lot of weight lately. She also verifies that he has no history of ischemic stroke or ICH, no recent surgeries or head trauma, and no GI hemorrhage. Needle Time: 02/19/2025 22:49:58 Hospital Course 02/21- mri is pending. EEG with generalized slowing. Earlier he had dizziness. He has no memory of what brought him into he 02/20-- he was intubated and sedated due to agitation. He has not had any witnessed seizures. He is on precedex. He is on levo due to soft blood pressure in the setting of sedation. He has shown full strength. ? Imaging CT head : No acute abnormalities repeat CT unchanged EEG moderate generalized slowing Labs Lactate 1.2 LDL 60 A1c 5.8 ? Examination BP(134/82),?Pulse(80),?Temp(97.1),?Resp(20), 1A: Level of Consciousness - Alert; keenly responsive?+ 0 1B: Ask Month and Age - Both Questions Right?+ 0 1C: Blink Eyes & Squeeze Hands - Performs Both Tasks?+ 0 2: Test Horizontal Extraocular Movements - Normal?+ 0 3: Test Visual Sage - No Visual Loss?+ 0 4: Test Facial Palsy (Use Grimace if Obtunded) - Minor paralysis (flat nasolabial fold, smile asymmetry)?+ 1 5A: Test Left Arm Motor Drift - No Drift for 10 Seconds?+ 0 5B: Test Right Arm Motor Drift - No Drift for 10 Seconds?+ 0 6A: Test Left Leg Motor Drift - No Drift for 5 Seconds?+ 0 6B: Test Right Leg Motor Drift - No Drift for 5 Seconds?+ 0 7: Test Limb Ataxia (FNF/Heel-Osman) - No Ataxia?+ 0 8: Test Sensation - Normal; No sensory loss?+ 0 9: Test Language/Aphasia - Normal; No aphasia?+ 0 10: Test Dysarthria - Mild-Moderate Dysarthria: Slurring but can be understood?+ 1 11: Test Extinction/Inattention - No abnormality?+ 0 NIHSS Score:?2 NIHSS Free Text :?very mild R nl fold flattening dyskinetic movement of the oromandibular region ? This consult was conducted in real time using interactive audio and video technology. Patient was informed of the technology being used for this visit and agreed to proceed. Patient located in hospital and provider located at home/office setting. Telehealth Neurology consultation was provided. I spent 30 minutes providing telehealth care. This includes time spent for face to face visit via telemedicine, review of medical records, imaging studies and discussion of findings with providers, the patient and/or family. Dr Flavia Rdz [facility] For Inpatient follow-up with [facility] physician please call [facility] at . As we are not an outpatient service for any post hospital discharge needs please contact the hospital for assistance. If you have any questions for the [facility] physicians or need to reconsult for clinical or diagnostic changes please contact us via [facility] at Signature :?Flavia Rdz ?
--- NOTE | 2025-02-21 15:58 | PC.SS ---
SW attempted to complete assessment. However, patient was confused. He was unable to provide information.
[2025-02-21] MEDS: ASPIRIN EC 81 MG TABEC PO (16:30)
[2025-02-21] MEDS: ATORVASTATIN CALCIUM 20 MG TABLET 40 MG PO (21:02)
[2025-02-22] VITALS (8 sets, daily range): BP systolic 107–148; BP diastolic 66–85; PULSE 62–84; RESP 14–94; TEMP 36.1–36.4; O2SAT 94–98; BMI 23.1
--- NOTE | 2025-02-22 | XR_ITS ---
Examinations: MRI Brain without intravenous contrast. MRI brain with intravenous contrast MRA brain with intravenous contrast. MRA brain without intravenous contrast MRA neck with intravenous contrast Date and time of exam: February 22, 2025, 0835 hours INDICATIONS: Stroke alert, February 19, 2025, patient found down unconscious Technique: Multiple axial and sagittal images of the brain have been obtained Siemens high-resolution 1.5 Yessenia short bore scanner is utilized. Sagittal sections, T1-weighted, TR 500, TE 14 Axial sections proton density and T2-weighted, TR 3,000, TE 34, TR 3,000, TE 91 Inversion recovery axial images, TR 9,260, TE 111, TI 2,500 Diffusion weighted images, axial sections, TR 4,800, TE 128, B value 1,000 Axial sections, ADC map, TR 4,800, TE 128. Contrast images have been obtained post intravenous 20 cc Gadolinium. T1-weighted axial and coronal images post contrast have been obtained. Angiographic images of neck and brain are obtained pre and post contrast. 3-D post processing performed, including brain, extracranial neck arterial maximum intensity projections Findings: Sellaturcica is not enlarged. The optic chiasm and infundibular stalk are not remarkable. Prepontine and interpeduncular cisterns are not enlarged. No localized enlargement of the medulla or flakito. Fourth ventricle and cerebellar tonsils normal in position. Subacute hemorrhage is not seen. Fourth ventricle is midline. Mass in the cerebellopontine angle region is not evident. 7th and 8th nerve complexes exhibits symmetry. Globes are symmetrical with no retro-orbital mass. Increased white matter signal mild Diffusion-weighted images demonstrateno focus of restricted diffusion. Mass-effect upon the ventricular system is not identified. Abnormal contrast enhancement is not seen. MRA brain carotid images no significant carotid stenoses, no large vessel occlusions Impression: Negative for acute hemorrhage mass effect or midline shift No acute infarct No significant carotid stenoses No cerebral large vessel arterial occlusions
[2025-02-22 06:15] LABS: Basophils # (Auto) 0.0 Thou/mm3 (0.0-0.2); Basophils % (Auto) 1 % (0-2.5); Eosinophils # (Auto) 0.0 Thou/mm3 (0.0-0.5); Eosinophils % (Auto) 0 % (0-10); Hematocrit 29.6 % (41.0-53.0); Hemoglobin 10.5 g/dL (13.5-16.0); Immature Granulocytes Auto 0.02 Thou/mm3 (0.00-0.00); Lymphocytes # (Auto) 1.6 Thou/mm3 (1.0-4.8); Lymphocytes % (Auto) 29 % (10-50); Mean Corpuscular HGB Conc 35.5 g/dl (31.0-37.0); Mean Corpuscular Hemoglobin 30.5 pg (25.0-35.0); Mean Corpuscular Volume 86 fL (80-100); Monocytes # (Auto) 0.6 Thou/mm3 (0.0-0.8); Monocytes % (Auto) 12 % (0-12); Neutrophils # (Auto) 3.1 Thou/mm3 (1.8-7.7); Neutrophils % (Auto) 57 % (37-80); Nucleated Red Blood Cell # 0.00 Thou/mm3 (0.00-0.00); Nucleated Red Blood Cell % 0 /100 WBC (0); Platelet Count 183 Thou/mm3 (140-440); RDW Standard Deviation 39.8 fL (35.1-43.9); Red Blood Count 3.44 Miln/mm3 (4.50-5.90); White Blood Count 5.3 Thou/mm3 (3.8-10.6)
[2025-02-22 06:29] LABS: INR 1.0 (0.9-1.3); Prothrombin Time 11.4 Seconds (9.0-12.2)
[2025-02-22 06:59] LABS: Alanine Aminotransferase 11 U/L (10-49); Albumin, Serum 3.4 gm/dL (3.4-4.8); Albumin/Globulin Ratio 1.9 (1.2-2.2); Alkaline Phosphatase 80 U/L (46-116); Anion Gap 7 (7-16); Aspartate Amino Transferase 36 U/L (0-34); BUN/Creatinine Ratio 6 Ratio (12-20); Bilirubin,Total 0.6 mg/dL (0.3-1.2); Blood Urea Nitrogen < 5 mg/dL (9-23); Calcium 8.3 mg/dL (8.3-10.6); Calcium (Corrected) 8.8 mg/dL (8.5-10.1); Carbon Dioxide 23.5 mMol/L (20.0-31.0); Chloride 107 mMol/L (98-107); Creatinine (Component) 0.8 mg/dL (0.6-1.3); Estimated Creatinine Clearance 107.8 mL/min (>60); Globulin 1.8 gm/dL (2.3-3.5); Glucose 131 mg/dL (74-106); Magnesium 1.4 mg/dL (1.6-2.6); Osmolality,Calculated 273 (275-295); Phosphorous 3.0 mg/dL (2.4-5.1); Potassium 3.4 mMol/L (3.4-5.1); Sodium 137 mMol/L (136-145); Total Protein 5.2 gm/dL (5.7-8.2); eGFR > 60 See Note
[2025-02-22] MEDS: PANTOPRAZOLE 40 MG TABLET PO (10:34)
[2025-02-22] MEDS: ASPIRIN EC 81 MG TABEC PO (10:34)
[2025-02-22] MEDS: BENZTROPINE 0.5 MG TABLET 2 MG PO ×2 (10:34→20:36)
[2025-02-22] MEDS: Magnesium Sulfate 2 GM Ivpb 2 GM/50 ML BAG IV (10:34)
[2025-02-22] MEDS: NICOTINE PATCH 21 MG/24 HR PATCH.TD24 TOP (10:35)
[2025-02-22] MEDS: levETIRAcetam INJ 100 MG/ML VIAL 5ML 500 MG IVP ×2 (10:35→20:37)
--- NOTE | 2025-02-22 11:33 | PC.PT ---
PT eval only. Patient is safe to ambulate to the bathroom and in the halls with 1 staff assist due to his history of psychiatric conditions. RN made aware.
--- NOTE | 2025-02-22 14:00 | PD.RESPRO ---
Documentation for date of: 02/22/25 Subjective Subjective Interval history: Patient seen today at the bedside found awake, alert. Patient is resting comfortably in bed. No overnight events reported. Vitals and labs reviewed. Patient was originally admitted to the ICU status post TNK and extubated. Echo with bubble study pending, however no time study technologist at this time. Patient had MRI brain done which was negative for stroke. Pending final neurology recommendations. Will continue to monitor at this time. Possible discharge in the next 24-48 hours. Exam Vital Signs Temp Pulse Resp BP Pulse Ox O2 Del Method FiO2 97.0 F 70 14 129/79 98 Room Air 30 02/22/25 12:00 02/22/25 12:00 02/22/25 12:00 02/22/25 12:00 02/22/25 12:00 02/22/25 12:00 02/20/25 10:48 Narrative Exam General: Awake. Bradykinetic. Slow speech. HEENT: Normocephalic, atraumatic, mucous membranes moist. Heart: Regular rate and rhythm, no murmurs. Lungs: Clear to auscultation with no wheezing or crackles. Abdomen: Soft, nondistended, nontender, positive bowel sounds. ?No guarding or rebound tenderness. Neurologic: Alert and oriented x3, no gross neurological deficit, and patient able to move all 4 extremities. Extremities: No edema. Skin: No rash or ecchymoses. Objective Labs 02/23/25 04:48 02/23/25 04:48 Labs: Laboratory Results - last 24 hr 02/22/25 04:39 WBC 5.3 RBC 3.44 L Hgb 10.5 L Hct 29.6 L MCV 86 MCH 30.5 MCHC 35.5 RDW Std Deviation 39.8 Plt Count 183 Neut % (Auto) 57 Lymph % (Auto) 29 [place] % (Auto) 12 Eos % (Auto) 0 Baso % (Auto) 1 Neut # (Auto) 3.1 Lymph # (Auto) 1.6 [place] # (Auto) 0.6 Eos # (Auto) 0.0 Baso # (Auto) 0.0 Immature Gran # (Auto) 0.02 H Absolute Nucleated RBC 0.00 Immature Gran % 0 Nucleated RBC % 0 PT 11.4 INR 1.0 Sodium 137 Potassium 3.4 Chloride 107 Carbon Dioxide 23.5 Anion Gap 7 BUN < 5 L Creatinine 0.8 Estim Creat Clear Calc 107.8 eGFR > 60 BUN/Creatinine Ratio 6 L Glucose 131 H Calculated Osmolality 273 L Calcium 8.3 Corrected Calcium 8.8 Phosphorus 3.0 Magnesium 1.4 L Total Bilirubin 0.6 AST 36 H ALT 11 Alkaline Phosphatase 80 Total Protein 5.2 L Albumin 3.4 Globulin 1.8 L Albumin/Globulin Ratio 1.9 ABG Interpretation ABG results: 02/20/25 02/20/25 01:08 04:52 ABG pH 7.29 L 7.32 L ABG pCO2 46 45 ABG pO2 90 100 ABG HCO3 22 23 ABG O2 Saturation 97 98 ABG Base Excess -5 L -3 Quality Measures Quality Measures VTE prophylaxis and stroke Suspected type of Stroke: Acute Ischemic Tenecteplase given: within 60 min of arrival Rehab services: PT evaluation ordered VTE Prophylaxis: not indicated Antithrombotic by day 2:: ordered Statin ordered: >75 y/o moderate or high intensity dose Anticoagulation ordered for A-fib or flutter (current or hx): not indicated Assessment & Plan Assessment Current Active Medications: Generic Name Dose Route Start Last Admin Trade Name Freq PRN Reason Stop Dose Admin Aspirin 81 mg 02/21/25 15:00 02/22/25 10:34 Aspirin Ec 81 Mg Tabec PO 03/23/25 14:59 81 mg QDAY CARLA Administration Atorvastatin Calcium 40 mg 02/21/25 21:00 02/21/25 21:02 Atorvastatin Calcium 20 Mg Tablet PO 03/23/25 20:59 40 mg HS CARLA Administration Benztropine Mesylate 2 mg 02/20/25 21:00 02/22/25 10:34 Benztropine 0.5 Mg Tablet PO 03/22/25 20:59 2 mg BID CARLA Administration Olanzapine 10 mg/ Sterile 0 mg 02/20/25 17:49 Water 2.1 ml IM 03/22/25 17:48 QDAY PRN AGITATION (SEVERE) Dextrose 25 ml 02/20/25 00:17 Dextrose 50%-Water Inj 50 Ml Syringe IV 03/22/25 00:16 Q15MIN PRN BG 50-70 responsive npo pt Dextrose 50 ml 02/20/25 00:17 Dextrose 50%-Water Inj 50 Ml Syringe IV 03/22/25 00:16 Q15MIN PRN BG <50 OR BG <70 & pt unresponsive Glucagon 1 mg 08/02/25 00:17 Glucagon Inj 1 Mg Vial IM Q15MIN PRN BG <70, and no IV access Labetalol HCl 10 mg 02/19/25 21:58 Labetalol Inj 5 Mg/Ml Vial 20 Ml IVP Q15M PRN HYPER Levetiracetam 500 mg 02/20/25 09:00 02/22/25 10:35 Levetiracetam Inj 100 Mg/Ml Vial 5ml IVP 03/22/25 08:59 500 mg Q12HR CARLA Administration Midazolam HCl 2 mg 02/20/25 06:24 Midazolam Inj 1 Mg/Ml Vial 2 Ml IVP 02/25/25 06:23 Q1HR PRN AGITATION OR ANXIETY Nicotine 21 mg 02/20/25 12:15 02/22/25 10:35 Nicotine Patch 21 Mg/24 Hr Patch.Td24 TOP 03/22/25 12:14 21 mg QDAY CARLA Administration Ondansetron HCl 4 mg 02/20/25 18:40 02/20/25 19:24 Ondansetron Inj 2 Mg/Ml Inj 2 Ml IVP 03/22/25 18:39 4 mg Q6HR PRN Administration NAUSEA OR VOMITING Protocol Pantoprazole Sodium 40 mg 02/22/25 09:00 02/22/25 10:34 Pantoprazole 40 Mg Tablet PO 03/24/25 08:59 40 mg QDAY CARLA Administration Protocol Quetiapine Fumarate 100 mg 02/20/25 21:00 02/21/25 21:03 Quetiapine Fumarate 100 Mg Tablet PO 03/22/25 20:59 100 mg HS CARLA Administration Risperidone 4 mg 02/20/25 21:00 02/21/25 21:03 Risperidone 1 Mg Tablet PO 03/22/25 20:59 4 mg HS CARLA Administration Trazodone HCl 300 mg 02/20/25 21:00 02/21/25 21:03 Trazodone Hcl 50 Mg Tablet PO 03/22/25 20:59 300 mg HS CARLA Administration Plan This patient is a 59-year-old male with past medical history of schizophrenia on multiple antipsychotic, active smoker brought in by EMS to ED on 02/19/2025 with chief complaint of altered mental status. Patient's baseline is AO x 3 per patient's sister. EMS reported that patient was noted to be found on floor with foaming around mouth and right facial droop. Patient was combative and confused. He was given Versed 2 mg x 1. Patient's GCS was 8 due to confusion therefore was immediately intubated to protect airways. Patient was admitted to ICU for further management of acute encephalopathy likely due to stroke/metabolic/seizures. Downgraded to tele on 02/21. Pending Echo and MRI. #Acute encephalopathy - resolved #Stroke r/o, s/p TNK Differential diagnosis: Stroke vs TIA vs seizures vs Antipsychotic medication side effect Patient presented with altered mental status. Last well-known time was 9 PM. Patient was brought in by EMS on 9:30. Within window of TNK and no complications. Right facial droop and slurred speech was endorsed by patient's sister and EMS. U tox positive for benzodiazepines, likely from the medications given in the hospital. Blood alcohol level was negative. Troponin I was negative. Lactic acid 1.2. Stroke alert was initiated. Teleneuro was consulted.Per teleneuro note, NIHSS score 7, examination showed confused aphasic patient with right facial droop and slurred speech. Patient was within the window of thrombolytics and TNK was recommended along with MRI brain. Tenecteplase was given dose 19.8 mg. Dx: - Head CT showed no acute changes. - Head and neck CT showed no LVO. - EKG showed sinus rhythm. No acute ST-T changes. -MRI brain negative for acute stroke. - EEG is ordered, pending Tx: -Neurochecks with blood pressure check recommended. -Neuro checks q4 hrs x 24 hrs and then per shift. Continue with Telemetry -CT brain 24-hour postthrombolytic at 10:50 pm on 02/20/2025 showed no acute hemorrhage. -Hold all anticoagulation per tele neuro -No Jules catheter, NG tube or arterial cath unless needed. -Head of bed elevation less than 30 degrees. -DVT prophylaxis with SCDs. -Euglycemia -Allow permissive hypertension -Tele neuro will follow - Neurologist, Dr Torres consulted, appreciate recommendations - Morning labs including lipid panel, A1c, TSH - within normal limits - Aspiration precautions - started Aspirin 81mg PO QD, atorvastatin 40mg PO HS. - Recommend Speech therapy if failed dysphagia screen - Physical therapy/Occupational therapy #History of schizophrenia No suicidal ideation in past couple of days per patient's sister. Home medications listed: Banophen 25 mg twice daily, benztropine 2 mg once daily, Invega sustena 234 mg every 4 weeks, Risperdal 4 mg at bedtime, Seroquel 100 mg at bedtime as needed, trazodone 300 mg at bedtime Tx: - Resumed his home medications. Started on olanzapine as needed. #History of COPD #Active smoker Patient smokes cigarettes 2 packs/day. Dx: - Chest x-ray was negative. Tx: - Discussed regarding nicotine patch. Patient can follow-up outpatient for Varencline cravings once downgraded to floors #Normocytic anemia Initial hemoglobin 13.3, baseline Hgb ~13 Dx: - Daily CBC Tx: - PRBC if hemoglobin drops below 7 - Follow-up with morning CBC DVT prophylaxis: SCDs GI prophylaxis: Protonix 40 IV daily Diet: Cardiac diet Lines: Peripherals CODE STATUS: Full code Case discussed with my attending Dr. Familia Warner MD PGY-2 Attending Provider Attestation/Addendum I have examined the patient, reviewed labs and imaging findings, discussed the case with the resident(s), and reviewed entered orders. I agree with the plan of care as outlined in this note, with these additional summaries/recommendations: Patient seen at bedside. No acute overnight events. Patient was seen by physical therapy and is independent. He is status post TNK and downgraded from intensive care unit. Repeat head CT did not reveal acute hemorrhage. MRI brain did not reveal acute infarct. We will cancel echocardiogram with bubble study. Suspect symptoms more related to underlying psychiatric illness versus less likely TIA. There was reportedly seizure like activity noted prior to arrival and patient started on Keppra and tolerating well. EEG shows moderate encephalopathy. Continue asa and statin for now. LDL at goal 60. Continue antipsychotics. Continue breathing treatments as needed for history of COPD. Patient updated on the plan and in agreement. All questions answered to satisfaction. Please see residents note for additional details and management. Dr. Familia MD
--- NOTE | 2025-02-22 15:23 | ESPR_ITS ---
Tele Neuro Progress Note Progress Note Date 02/22/25 [facility] TeleNeurology Progress Note Date of Service 02/22/2025 Presentation: Based on previous neurology note(s)?? : 59 year old man with history of schizophrenia presenting with acute unresponsiveness. He status post TNK on 02/19/25 Initial exam shows confused aphasic patient with right facial droop and slurred speech. There is concern that when he initially presented he had clonic movement of the right side. His mental status has significantly improved but he still has very mild right facial droop and slurred speech. EEG did not show any focal abnormalities but demonstrated generalized slowing. This was done the day he was extubated. His mental status has improved. MRI is currently pending. His presentation is concerning for seizure with postictal aphasia and right- sided weakness versus stroke Interval history: LDL 60 02/22/2025: nursing does not report any significant new events overnight. Impression: Schizophrenia History of seizures per chart but patient denies Acute unresponsiveness, confusion, speech impairment, right facial droop, treated as Acute Ischemic Stroke with TNK on 02/19/25 Recommendations: (Primary Team to order Controlled Medications) Unless specifically noted I Agree with Impression and Plan from previous Neurology note/consult. 1- Risk factor management: Statin for Goal LDL<70, primary team to order Goal HbA1c<7; Blood pressure management: Follow order set recommendations regarding Blood Pressure monitoring and other nursing care post IV Thrombolysis. (Maintain blood pressure below 180/105 mmHg for the first 24 hours after tPA administration.? After first 24 hours slowly lower Blood Pressure towards normotension in course of 1-2 days;? avoid hypotension or rapid lowering of Blood Pressure) 2- Work up: Brain MRI: No Acute Intracranial Abnormality reported. Head and neck Vascular imaging: CTA Head and Neck: pending ECHO: pending, primary team to review LDL and HbA1c: 60/? Head CT 24 hour post IV Thrombolysis no Hemorrhagic Transformation EEG No focal abnormalities, persistent asymmetries or epileptiform discharges, or electroencephalographic seizures are identified. 3- Antithrombotic regimen: A-? reasonable to maintain on Aspirin 81mg daily (new medication) but my suspicion is more for an epileptic phenomenon (given history of seizure, presenting with Loss of Consciousness, negative brain MRI), maintain on new medication keppra 500mg BID, if it causes behavioral issues then can switch to another Antiseizure medication such as valproic acid. 4- Life Style modifications for stroke prevention should be followed: Diet. Mediterranean diet rich in fruits, vegetables, whole grains, fish, legumes, plant-based oils preferred over animal fats. Reduce sodium intake as directed by primary care physician. Exercise. Aim for 150-minutes of moderate to intense exercise per week in sessions of at least 10 minutes duration as tolerated. Tobacco. Tobacco cessation with counseling and/or pharmacologic management Alcohol. Reduce alcohol consumption as directed by primary care physician. Hormone therapy. Avoid estrogen and testosterone containing medications Sleep. Evaluation and treatment of sleep apnea Return precautions. Seek emergency medical attention if you cannot see, speak, move or feel as you do normally for any abnormal length of time as these may be signs of a stroke Continue with Telemetry DVT prophylaxis (SCD) Physical Therapy/Occupational Therapy/Speech Therapy/ Rehab (if/when eligible) Neurology will sign off. Please notify neurology if TTE shows very low EF, cardiac thrombus or PFO. Follow up with outpatient neurology in 2-3 weeks. Please contact [facility] Nav[facility] to reach me if further questions/concerns arise. Examination: Examination done through interactive audio and video telecommunications with the assist of bedside nursing (when available) awake, alert, Oriented x3 speech no aphasia Extraocular movements intact face symmetric arms no drift (10s) coordination intact in finger to nose Patient / Family was informed the Neurology Consult would occur via TeleHealth consult by way of interactive audio and video telecommunications and consented to receiving care in this manner. ? Patient is being evaluated for possible acute neurologic impairment and high probability of imminent or life - threatening deterioration. I spent total of 15 minutes providing care to this patient, including time for face to face visit via telemedicine, review of medical records, imaging studies and discussion of findings with providers, the patient and / or family. ? ? Dr Lars Thorpe ? ? [facility] For Inpatient follow-up with [facility] physician please call [facility] . This is not an outpatient service. Post hospital discharge, please contact hospital directly. ? Please do not communicate with [facility] physicians via secure chat. If yo u have any questions, Please contact [facility]. Please call or reconsult our service if there are any clinical or diagnostic changes. ? Most Recent Vital Signs Last Vital Signs Temp 97.0 F 02/22/25 12:00 Pulse 70 02/22/25 12:00 Resp 14 02/22/25 12:00 BP 129/79 02/22/25 12:00 Pulse Ox 98 02/22/25 12:00 O2 Del Method Room Air 02/22/25 12:00 FiO2 30 02/20/25 10:48 Laboratory-Coagulation Panel PT 11.4 Seconds (9.0-12.2) 02/22/25 04:39 INR 1.0 (0.9-1.3) 02/22/25 04:39 APTT 29.1 Seconds (22.0-36.0) 02/21/25 05:05
--- NOTE | 2025-02-22 16:04 | PC.SS ---
Patient Shahid Wallace is a 59 Year old male admitted for AMS, Stroke. SS met with patient at bedside to discuss discharge plan. Patient reports he lives at home with his mother. Patient reports his sister, Lesvia Desai is his surrogate decision [phone]. Patient reports prior to admission he did not utilize any source of DME to assist with ambulation. Patient was able to complete all ADL's independently. Choice of pharmacy is [facility]. Patient does not have PCP. Patient reports he does follow up at the [facility]. At time of discharge patient will return back home, family will provide transportation. next of kin: Sister, Lesvia Desai
--- NOTE | 2025-02-22 16:08 | PC.SS ---
SS follow up note; Neuro Clearance pending. Patient will discharge home when medically cleared.
[2025-02-22] MEDS: ATORVASTATIN CALCIUM 20 MG TABLET 40 MG PO (20:37)
[2025-02-23] VITALS (8 sets, daily range): BP systolic 114–126; BP diastolic 61–82; PULSE 54–78; RESP 14–96; TEMP 36–36.4; O2SAT 95–100; BMI 22.0
[2025-02-23 05:57] LABS: Basophils # (Auto) 0.0 Thou/mm3 (0.0-0.2); Basophils % (Auto) 1 % (0-2.5); Eosinophils # (Auto) 0.0 Thou/mm3 (0.0-0.5); Eosinophils % (Auto) 0 % (0-10); Hematocrit 31.3 % (41.0-53.0); Hemoglobin 11.0 g/dL (13.5-16.0); Immature Granulocytes Auto 0.02 Thou/mm3 (0.00-0.00); Lymphocytes # (Auto) 2.0 Thou/mm3 (1.0-4.8); Lymphocytes % (Auto) 33 % (10-50); Mean Corpuscular HGB Conc 35.1 g/dl (31.0-37.0); Mean Corpuscular Hemoglobin 30.1 pg (25.0-35.0); Mean Corpuscular Volume 86 fL (80-100); Monocytes # (Auto) 0.6 Thou/mm3 (0.0-0.8); Monocytes % (Auto) 10 % (0-12); Neutrophils # (Auto) 3.3 Thou/mm3 (1.8-7.7); Neutrophils % (Auto) 56 % (37-80); Nucleated Red Blood Cell # 0.00 Thou/mm3 (0.00-0.00); Nucleated Red Blood Cell % 0 /100 WBC (0); Platelet Count 199 Thou/mm3 (140-440); RDW Standard Deviation 40.0 fL (35.1-43.9); Red Blood Count 3.66 Miln/mm3 (4.50-5.90); White Blood Count 5.9 Thou/mm3 (3.8-10.6)
[2025-02-23 06:17] LABS: INR 1.0 (0.9-1.3); Prothrombin Time 11.0 Seconds (9.0-12.2)
[2025-02-23 06:28] LABS: Alanine Aminotransferase 11 U/L (10-49); Albumin, Serum 3.4 gm/dL (3.4-4.8); Albumin/Globulin Ratio 1.8 (1.2-2.2); Alkaline Phosphatase 79 U/L (46-116); Anion Gap 6 (7-16); Aspartate Amino Transferase 30 U/L (0-34); BUN/Creatinine Ratio 7 Ratio (12-20); Bilirubin,Total 0.6 mg/dL (0.3-1.2); Blood Urea Nitrogen < 5 mg/dL (9-23); Calcium 8.4 mg/dL (8.3-10.6); Calcium (Corrected) 8.9 mg/dL (8.5-10.1); Carbon Dioxide 24.9 mMol/L (20.0-31.0); Chloride 108 mMol/L (98-107); Creatinine (Component) 0.7 mg/dL (0.6-1.3); Estimated Creatinine Clearance 123.2 mL/min (>60); Globulin 1.9 gm/dL (2.3-3.5); Glucose 88 mg/dL (74-106); Magnesium 1.4 mg/dL (1.6-2.6); Osmolality,Calculated 273 (275-295); Phosphorous 4.2 mg/dL (2.4-5.1); Potassium 3.9 mMol/L (3.4-5.1); Sodium 139 mMol/L (136-145); Total Protein 5.3 gm/dL (5.7-8.2); eGFR > 60 See Note
[2025-02-23] MEDS: ASPIRIN EC 81 MG TABEC PO (08:11)
[2025-02-23] MEDS: Magnesium Sulfate 4 GM Ivpb 4 GM/50 ML BAG IV (08:11)
[2025-02-23] MEDS: BENZTROPINE 0.5 MG TABLET 2 MG PO (08:11)
[2025-02-23] MEDS: PANTOPRAZOLE 40 MG TABLET PO (08:11)
[2025-02-23] MEDS: NICOTINE PATCH 21 MG/24 HR PATCH.TD24 TOP (08:24)
[2025-02-23 09:18] LABS: Cardiac Risk Estimate 2.4 RATIO (4.0-6.7); Cholesterol 113 mg/dL (132-200); HDL Cholesterol 47 mg/dL (40-60); LDL Cholesterol,Calculated 49 mg/dL (0-130); Triglycerides 85 mg/dL (30-150)
[2025-02-23] MEDS: levETIRAcetam INJ 100 MG/ML VIAL 5ML 500 MG IVP (09:32)
--- NOTE | 2025-02-23 09:43 | ESDS_ITS ---
<Statement entered by Hermes Warner MD - 02/23/25 17:45> Patient was examined and case was reviewed with team including attending physician. Note reviewed, I agree with most of its contents and agree with the patient's care. Case discussed with my attending Dr. Familia Warner MD PGY-2 Planned Discharge Date 02/23/25 DS: Providers Provider Date of admission: 02/20/25 00:01 Primary care physician: Physician No Primary/Family Admitting Provider: Aj Brian MD Attending Provider on Admission: Garfield Barbosa MD Consults: 02/19/25 21:58 Consult to Neurology / Tele-Neurology Routine Comment: Consulting Provider: [facility] 02/20/25 00:16 Consult to Neurology / Tele-Neurology Routine Comment: Consulting Provider: Elio Torres 02/20/25 00:18 Referral Respiratory Therapy Routine Comment: 02/21/25 15:17 Referral Physical Therapy Routine Comment: Physician Instructions: Referral Speech Therapy Routine Comment: Attending Provider on DC: Garfield Barbosa MD Discharging Provider: Chris Ngo DO Anticipated date of discharge: 02/23/25 DS: Diagnosis Problem List Completed Was Problem List Reviewed/Reconciled?: Yes Hospital Course Hospital Course Hospital course: Mr. Wallace is a 59M with history of schizophrenia on multiple antipsychotic admitted for stroke rule out on 02/20/25. According to pt's sister, she stated that pt started to feel weak and eventually passed out as she helped him to lay onto the floor. Pt then started having right arm [id number] movement with foaming coming out of the mouth. Upon further investigation, it was noted that pt had a recent increase in dosage of his Invega Sustenna just 2 weeks prior. In the ED, pt was agitated and confused with a GCS score 8. He was intubated for airway protection and a stroke alert was called. Per teleneuro note, NIHSS score 7, examination showed confused aphasic patient with right facial droop and slurred speech. Patient was within the window of thrombolytics and TnK was given. Initial CT head negative for acute hemorrhage, mass effect or midline shift. CTA head and neck negative for LVO or thrombus. Post-TnK 24H CT Head showed no interval acute hemorrhage. Pt was initially admitted to ICU, but later downgraded to tele on 02/21 after extubation. Brain MRI on 02/22 showed no acute infarct, no carotid stenoses, and no cerebral LVO. Neurology was consulted, suggested to put pt on Keppra 500mg BID as pt's symptoms were likely due to seizure. Pt was advised to continue taking his antipsychotic medications and added Keppra 500mg PO BID, ASA 81mg QD, and atorvastatin 40mg QD to his medication regimen. Pt was instructed to follow up with up with PCP and neurology within 2 weeks of discharge. No focal neuro deficit noted on discharge. Pt's speech is slow at baseline. Pt is medically and physically stable for discharge. Diagnosis #New onset seizure #Stroke r/o, s/p TNK #History of schizophrenia #Acute encephalopathy - resolved #Chronic normocytic anemia Discharge Plan: Follow up with primary care physician within 1 week of discharge Follow up with neurology within 2 weeks of discharge You have been prescribed: Aspirin and Atorvastatin for stroke prevention Please take Keppra for seizure prevention Should your symptoms recur or worsen patient is instructed to return to the ED. A referral to Home Health has been initiated and they will be getting in contact with you within 24-48 hours to make arrangements. If you do not hear from them, please contact [facility] and ask to speak to Bonding Supervisor regarding your Home Health Services. Case discussed with my senior resident Dr. Raghav Warner Case discussed with my attending Dr. Familia Ngo DO PGY 1 Time Spent with Patient Time attestation: Total time spent providing and/or coordinating discharge services: Time spent: Greater than 30 minutes Quality: Stroke Pt Provided Written Stroke Discharge Instructions: No Exam Vital Signs Temp Pulse Resp BP Pulse Ox O2 Del Method FiO2 96.8 F 74 14 114/71 96 Room Air 30 02/23/25 08:00 02/23/25 08:00 02/23/25 08:00 02/23/25 08:00 02/23/25 08:00 02/23/25 08:00 02/23/25 08:00 Narrative Exam General: Well appearing, well nourished, in no distress. Oriented x 3, normal mood and slow affect (baseline). No focal neuro deficit noted. Skin: Good turgor, no rash, unusual bruising or prominent lesions Heart: No cardiomegaly or thrills; regular rate and rhythm, no murmur or gallop Lungs: Clear to auscultation and percussion. No rales, wheeze, or rhonchi Abdomen: Bowel sounds normal, no tenderness, organomegaly, masses, or hernia Back: Spine normal without deformity or tenderness, no CVA tenderness Extremities: No amputations or deformities, cyanosis, edema or varicosities, peripheral pulses intact Musculoskeletal: Normal gait and station. No misalignment, asymmetry, crepitation, defects, tenderness, masses, effusions, decreased range of motion, instability, atrophy or abnormal strength or tone in the head, neck, spine, ribs, pelvis or extremities. Discharge Plan Plan Patient Disposition: Home w/HOME HEALTH Patient condition on transfer: Stable Care Plan Goals: Follow up with primary care physician within 1 week of discharge Follow up with neurology within 2 weeks of discharge If you don't have a PCP, you can make an appointment at the [facility]: [address] [place], [place] [id number] You have been prescribed: Aspirin and Atorvastatin for stroke prevention Please take Keppra for seizure prevention Should your symptoms recur or worsen patient is instructed to return to the ED. A referral to Home Health has been initiated and they will be getting in contact with you within 24-48 hours to make arrangements. If you do not hear from them, please contact [facility] and ask to speak to Bonding Supervisor regarding your Home Health Services. Prescriptions/Referrals Prescriptions/Med Rec: New levetiracetam [Keppra] 500 mg tablet 500 mg PO BID Qty: 60 2RF aspirin 81 mg tablet 81 mg PO QDAY Qty: 30 2RF atorvastatin 40 mg tablet 40 mg PO QDAY Qty: 30 0RF nicotine 14 mg/24 hr patch 24 hour 14 mg topical Q24H Qty: 28 0RF Continued risperidone [Risperdal] 2 MG tablet 4 mg PO HS Qty: 0 benztropine 2 mg tablet 2 mg PO BID Patient Comments: take 1 tablet by mouth twice a day diphenhydramine HCl [Banophen] 25 mg capsule 25 mg PO BID Patient Comments: TAKE 1 CAPSULE BY MOUTH TWICE A DAY quetiapine 100 mg tablet 100 mg PO HS Patient Comments: TAKE 1 TABLET BY MOUTH ONCE A DAY AT BEDTIME NEEDED trazodone 300 mg tablet 300 mg PO HS Patient Comments: TAKE 1 TABLET BY MOUTH ONCE A DAY AT BEDTIME NEEDED quetiapine [Seroquel] 100 mg tablet 100 mg PO HS Rx Instructions: administer on day 2 of therapy melatonin 10 mg capsule 10 mg PO HS PRN (Reason: sleep) Invega Sustenna 234 mg/1.5 mL syringe 234 mg .Route .4 weeks Referrals: [facility] [Outside] No Primary/Family,Physician [Primary Care Provider] - Elio Torres MD [Physician] - Patient/Caregiver Discharge Instructions Education Materials: Discharge Instructions for Stroke, ED Seizure New Onset Unknown ... Print Language: Russian Stand Alone Forms: Anna Award Info., Patient Portal Info Letter Discharge Order Discharge Orders: Discharge (Routine); Ordered 02/23/25 Ordered By: Hermes Warner Quality Discharge Quality Measures none MD Attestestation MD Attestation I have examined the patient, reviewed labs and imaging findings, discussed the case with the resident(s), and reviewed entered orders. I agree with the plan of care as outlined in this note. Time Spent: [address] Familia MD
--- NOTE | 2025-02-23 11:30 | PC.NURSE ---
Discharge orders since 938; MD notified of missing referral for Home Health and to transmit Rx to selected Pharmacy . Discharge pending completion discharge orders/referrals.
--- NOTE | 2025-02-23 14:12 | PC.NURSE ---
Discharge referral for Home Health in place. However Rx has not been transmitted. Dr. Alejo made aware that discharge is on HOLD until completion of Rx transmission.
--- NOTE | 2025-02-23 15:10 | PC.NURSE ---
has transmitted Rx to pharmacy; discharge ready pending transportation arrangments. I called sister Serene and Lesvia with no answer; VM left. Charge Nurse Serina ROBERSON made aware of hold up.
--- NOTE | 2025-02-23 15:18 | PC.NURSE ---
Received call back from patient sister Lesvia who states she is coming from [place] and should arrive @approximately 1545. Shahid made aware of discharge plan and awaiting ride.
--- NOTE | 2025-02-24 08:21 | PC.CM ---
Transfer center received a referral for home health. I reviewed notes and I see that SS met with patient and he does not have a PCP. I called Dr. Barbosa and I let him know that patient does not have a PCP and he will not be eligible for home health services. Dr. Barbosa states he understands.
== END 2025-02-23 16:40 | disposition home health service (06) | DRG 100 ==
LOC: SERX 23:07 → SERHOLD 02-20 00:26 → S2SX 02-20 02:11 → S2NX 02-22 06:23 → S2SX 02-24 13:29
PROVIDERS: Student in an Organized Health Care Education/Training Program; Admitting Provider Student in an Organized Health Care Education/Training Program; Emergency Provider Emergency Medicine; Visit Provider Student in an Organized Health Care Education/Training Program
DX: R56.9 Unspecified convulsions (principal); G93.41 Metabolic encephalopathy; R47.01 Aphasia; I95.2 Hypotension due to drugs; F17.210 Nicotine dependence, cigarettes, uncomplicated; D64.9 Anemia, unspecified; F20.9 Schizophrenia, unspecified; J44.9 Chronic obstructive pulmonary disease, unspecified; G83.9 Paralytic syndrome, unspecified; R29.810 Facial weakness; T42.75XA Adverse effect of unspecified antiepileptic and sedative-hypnotic drugs, initial encounter; Z79.899 Other long term (current) drug therapy; Z91.148 Patient's other noncompliance with medication regimen for other reason
CPT/HCPCS: 36415; 36600; 70450; 70496; 70498; 70553; 80053; 80061; 80307; 80320; 81001; 82550; 82803; 83036; 83605; 83735; 83880; 84100; 84443; 84484; 85025; 85610; 85730; 87081; 87086; 92610; 93005; 94002; 94003; 95816; 96361; 96365; 96366; 96375; 96376; 97162; 99285; A4216; A4649; A9577; J0330; J1630; J1953; J2250; J2251; J2358; J2405; J2470; J2704; J3010; J3101; J3475; J3480; J3490; J7030; J7999; Q9967; A9270; G0480; J2359

== ENCOUNTER 2025-03-03 14:39 | Emergency (ER) | payer MEDICARE, MEDICAID, SELFPAY ==
[2025-03-03 14:42] VITALS: BMI 21.1
[2025-03-03 16:09] VITALS: BP 113/73; PULSE 86; RESP 17; TEMP 36.6; O2SAT 98
--- NOTE | 2025-03-03 16:53 | PD.EDADULT ---
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 The patient was placed on upon discharge on Keppra 500 mg twice a day and since then has been sleeping all day long. Sister who is now been controlling the medications on a regular basis states the patient has not been taking too many of his medications however the Keppra is making him sleepy. They have no had prior history of seizures and they have had no seizures since the discharge. Patient and family are wondering if they can discontinue the Keppra until seen on March 17. Related Data Home Medications ?Medication ?Instructions ?Recorded ?Confirmed risperidone 2 mg tablet (Risperdal) 4 mg PO HS #0 tabs 02/23/16 02/20/25 benztropine 2 mg tablet 2 mg PO BID 11/05/19 02/20/25 diphenhydramine HCl 25 mg capsule 25 mg PO BID 02/20/25 02/20/25 (Banophen) melatonin 10 mg capsule 10 mg PO HS PRN sleep 02/20/25 02/20/25 paliperidone palmitate 234 mg/1.5 234 mg .Route .4 weeks 02/20/25 02/20/25 mL intramuscular syringe (Invega Sustenna) quetiapine 100 mg tablet 100 mg PO HS 02/20/25 02/20/25 quetiapine 100 mg tablet (Seroquel) 100 mg PO HS 02/20/25 02/20/25 trazodone 300 mg tablet 300 mg PO HS 02/20/25 02/20/25 Previous Rx's ?Medication ?Instructions ?Recorded aspirin 81 mg tablet 81 mg PO QDAY #30 tabs 02/23/25 atorvastatin 40 mg tablet 40 mg PO QDAY #30 tabs 02/23/25 levetiracetam 500 mg tablet 500 mg PO BID #60 tabs 02/23/25 (Keppra) nicotine 14 mg/24 hr daily 14 mg topical Q24H #28 ea 02/23/25 transdermal patch Allergies Allergy/AdvReac Type Severity Reaction Status Date / Time No Known Allergies Allergy Verified 03/03/25 14:46 Review of Systems Review of Systems Narrative Review of Systems: GEN: No fever, no chills, no weight loss EYES: No discharge, no visual changes, no pain HEENT: No ear pain, no congestion, no sore throat PULM: No shortness of breath, no cough, no congestion CV: No chest pain, no dyspnea on exertion, no palpitations GI: No nausea, no vomiting, no diarrhea, no pain, no constipation : No frequency, no urgency, no dysuria MUSC/SKEL: No joint pain, no back pain SKIN: No rash PSYCH: No hallucinations, no depression, + drowsiness HEME/LYMPH: No easy bleeding or bruising tendencies NEURO: No weakness, no headache Past Medical History Past Medical History CARDIAC: Negative Congestive Heart Failure RESPIRATORY: Positive Chronic Obstructive Pulmonary Disease (COPD) GENITOURINARY: Negative Renal Disease ENDOCRINE: Negative Diabetes Mellitus Type 1 or Diabetes Mellitus Type 2 PSYCHO/SOCIAL: Positive Schizophrenia Social History SMOKING STATUS: Current every day smoker ED Exam Narrative Physical exam: [General: Not in any acute distress Head normocephalic HEENT: Within acceptable limits Neck is supple nontender Chest equal chest rise nontender to palpation Respiratory: Clear to auscultation no wheezes crackles or rubs CV: Rate rhythm is regular no murmurs rubs or clicks Abdomen is distended secondary to body habitus soft nontender no masses positive bowel sounds all 4 quadrants Back: No CVA tenderness no spinous process tenderness from cervical spine thoracic and lumbar spine Skin: Intact no petechiae rash induration ulceration or crepitus Extremities: Moving all extremity against resistance cap refill less than 2 seconds neurosensory intact Neuro: Awake alert oriented x3 Glascow coma 15 no focal deficits] slow to speak at baseline. Course Quality Measures none Vital Signs Vital signs: Vital Signs Temperature 97.9 F 03/03/25 16:09 Pulse Rate 86 03/03/25 16:09 Respiratory Rate 17 03/03/25 16:09 Blood Pressure 113/73 03/03/25 16:09 Pulse Oximetry (%) 98 03/03/25 16:09 Oxygen Delivery Method Room Air 03/03/25 16:09 Discharge Plan Plan Patient Disposition: HOME (Self Care) Patient condition on transfer: Stable Prescriptions/Referrals Prescriptions/Med Rec: No Action risperidone [Risperdal] 2 MG tablet 4 mg PO HS Qty: 0 benztropine 2 mg tablet 2 mg PO BID Patient Comments: take 1 tablet by mouth twice a day diphenhydramine HCl [Banophen] 25 mg capsule 25 mg PO BID Patient Comments: TAKE 1 CAPSULE BY MOUTH TWICE A DAY quetiapine 100 mg tablet 100 mg PO HS Patient Comments: TAKE 1 TABLET BY MOUTH ONCE A DAY AT BEDTIME NEEDED trazodone 300 mg tablet 300 mg PO HS Patient Comments: TAKE 1 TABLET BY MOUTH ONCE A DAY AT BEDTIME NEEDED quetiapine [Seroquel] 100 mg tablet 100 mg PO HS Rx Instructions: administer on day 2 of therapy melatonin 10 mg capsule 10 mg PO HS PRN (Reason: sleep) Invega Sustenna 234 mg/1.5 mL syringe 234 mg .Route .4 weeks levetiracetam [Keppra] 500 mg tablet 500 mg PO BID Qty: 60 2RF aspirin 81 mg tablet 81 mg PO QDAY Qty: 30 2RF atorvastatin 40 mg tablet 40 mg PO QDAY Qty: 30 0RF nicotine 14 mg/24 hr patch 24 hour 14 mg topical Q24H Qty: 28 0RF Problem List Clinical Impression: Polypharmacy, Drowsiness Patient/Caregiver Discharge Instructions Other Activity Instructions:: Stop the Keppra for the next 4 days if there is no seizures continue not to give the medication. Follow-up with your PCP. Print Language: Finnish Stand Alone Forms: Anna Award Info., Patient Portal Info Letter PA/BILLING ADMINISTRATOR Supervising Physician PA/BILLING ADMINISTRATOR Supervising Physician: Jovon Pearson ENP, MD Attestation MD Attestation The patient was seen by the midlevel practitioner. I, the co-signing physician, was present during the entire ER visit. While I did not physically examine the patient, I was available for consultation as needed. I agree with the plan and documentation. MDM Clinical Information Provided by patient and family Medical Records Reviewed [facility] Meds/Rx Considered, not Ordered None Labs/Rad/Tests considered, not Ordered None Chronic Illness/Social Conditions which may negatively complicate care or outcome(s)-explain: Mental health EKG EKG not done Lab Interpretation Labs: none Imaging Imaging interpretation: none Diagnosis Differential diagnosis: Polysubstance abuse, polypharmacy, Most likely dx, and/or detailed dx discussion: Patient probably is sleeping mostly because of the Keppra that has been newly introduced as the patient has no history of seizures and has had no witnessed seizures I advised him that to stop the Keppra for 4 days if there is a seizure to restart and/or return to the emergency room for reevaluation. Dispositon Disposition: Discharge Home
== END 2025-03-03 17:26 | disposition home or self-care (01) ==
LOC: SERX 17:07
PROVIDERS: Emergency Provider Family Medicine; PCP Internal Medicine
DX: F19.10 Other psychoactive substance abuse, uncomplicated (principal)
CPT/HCPCS: 99282

== ENCOUNTER 2025-03-25 13:32 | Outpatient (AMB) | payer MEDICARE, MEDICAID, SELFPAY ==
[2025-03-25 13:51] VITALS: BP 106/70; PULSE 82; RESP 17; TEMP 36.2; O2SAT 96; BMI 21.2
--- NOTE | 2025-03-25 13:51 | PD.RESCLINIC ---
Vital Signs 03/25/25 13:51 Height 1.85 m Height Method Stated Weight 72.688 kg Weight Measurement Method Standing Scale BMI 21.2 BP 106/70 Blood Pressure Source Automatic Cuff Blood Pressure Location Left Upper Arm Position Sitting Respiration 17 Pulse 82 Pulse Source Monitor Temp 97.1 F Temp Source Oral Pulse Oximetry (%) 96 Oxygen Delivery Method Room Air Allergies/Meds Allergies & Medications Allergies No Known Allergies Allergy (Verified 03/25/25 13:55) MA Intake Visit Data Collection New Patient or Established: Established Patient (seen at [facility] within 3 years) Seen by Clinical Staff ONLY (RN/MA): No Pain Present Currently: No Pain scale:: 0 Pain Scale Used: Denise/Wil PCP or OBGYN visit in last 3 months: No Do You Feel Safe at Home: Yes Smoking Status Smoking Status: Current every day smoker Cessation Counseling Provided: DAVID was advised that quitting smoking is the single most important factor to protect the health of themselves and their family. Discussed the benefits of quitting smoking with patient. Encouraged patient to quit smoking and provided Cessation assistance materials and resources. Tobacco Use: Cigarette Years smoked: 20 Are you interested in quitting?: No Immunization / Flu Flu Vaccine in the Last 12 Months: No Flu Vaccine Exclusion Criteria: No Exclusion Criteria Past Medical History Past Medical History CARDIAC: Negative Congestive Heart Failure RESPIRATORY: Positive Chronic Obstructive Pulmonary Disease (COPD) GENITOURINARY: Negative Renal Disease ENDOCRINE: Negative Diabetes Mellitus Type 1 or Diabetes Mellitus Type 2 PSYCHO/SOCIAL: Positive Schizophrenia Social History SMOKING STATUS: Smoking status: Current every day smoker Patient Portal Questionaires Social History Tobacco History Smoking Status: Current every day smoker Domestic Abuse History Do You Feel Safe at Home: Yes Review of Systems Report any current symptoms Only answer those that you have currently: Past Medical History Past Medical History Have you ever been diagnosed with any of the following: Cardiology Problems Congestive Heart Failure: No Respiratory Problems Chronic Obstructive Pulmonary Disease (COPD): Yes Genital/Urinary Problems Renal Disease: No Endocrine Problems Diabetes Mellitus Type 1: No Diabetes Mellitus Type 2: No Psychologic Problems Schizophrenia: Yes History of Present Illness HPI Narrative Patient presents for a hospital follow-up visit. Patient was recently admitted for stroke workup due to left facial droop and slurred speech received tenecteplase in hospital. Stroke however followed to be negative. Neurology was consulted and possible seizure activity, Keppra 500 mg twice daily, aspirin 81 mg, and atorvastatin 40 mg nightly course prescribed. Patient's sister is present for current visit. Patient reports that prior to previous admission, he remembers taking a handful of his psychiatric medication, does not remember which one, and is unable to explain why. Denies voices ordering him to take action, however does endorse hearing voices and is unable to recall what they say. Endorses feeling slightly lower energy level. Patient denies anhedonia, increased or decreased sleep, increased or decreased appetite, suicidal ideation, energy or concentration changes. Has had no similar episodes of facial droop and slurred speech since admission. Patient was discharged with Keppra however he tried it for a few days but experienced extreme fatigue and brain fog thus stopped taking. Denies loss of consciousness, dizziness, lightheadedness, vertigo or recent illness. Patient reports that he sees a regular psychiatrist who prescribes all his psychiatric meds. Currently lives at home with his mother and 3 sisters who now manage his medication. Review of Systems Review of Systems Systems Reviewed: All systems reviewed, normal except as documented Objective/Exam Narrative Physical exam: GENERAL: AOx3, no acute distress, HEENT: NC/AT, mucous membranes moist, bilateral sclera anicteric CARDIOVASCULAR: regular rate and rhythm, S1/S2 present, no murmurs appreciated PULMONARY: clear to auscultation bilaterally, no rales/rhonchi/wheezes ABDOMINAL: soft, non-tender, non-distended, no rebound/guarding, bowel sounds present EXTREMITIES: no peripheral edema SKIN: warm and dry, intact, no rashes NEURO: CN II-XII grossly intact, no focal deficits, alert, following commands, tardive dyskinesia with lip smacking Assessment & Plan Diagnosis / Problem List (1) Seizure: Status: Suspected Assessment & Plan: Patient was admitted recently for CVA and seizure workup. However, following discharge patient remembers taking handful of medication prior to admission. Patient has not had similar episode since and episode likely 2/2 medication overuse. Attempted to take Keppra however, experienced excessive drowsiness and fatigue and patient stopped taking. Plan: Refer stat neurology referral follow up. Discontinue Keppra until neurology visit. Hospital admission likely 2/2 to medication overdose. RTC following neurology visit. (2) Stroke: Status: Suspected Assessment & Plan: As above. Hospital admission likely 2/2 to medication overdose. Plan: Stat neurology referral. Continue atorvastatin and aspirin at neurologist discretion. (3) Schizophrenia: Status: Chronic Assessment & Plan: Patient regularly sees psychiatrist outpatient monthly. Continues to hear voices however unable to recall what is said. Denies commanding voices. Plan: Continue current prescribed medications. Continue to follow up with psychiatrist monthly. Educate regarding family managing patient medications. Orders: Referrals Neurology I63.9 - Cerebral infarction, unspecified, R29.810 - Facial weakness, R41.82 - Altered mental status, unspecified, R56.9 - Unspecified convulsions Additional Assessment Attending note: I, Baljit Moreno MD, attest that I was physically present for the hyde portions of the service and evaluated the patient with the resident and I reviewed and discussed the case with the resident and agree with the resident's findings and plans of care as documented above. Baljit Moreno MD Physician Billing New Patient New Patient: E/M Level 3-CPT 61541 Office Procedures [facility] Level of Care Nursing/Assessment Patient Status: Established Patient Nursing Assessment/Reassessment: Medication Reconciliation, Update PMH in EMR and Vital Signs Coordination of Care: Complex Care and Chronic Disease 1-5, Education Complex Pt/Fam, Results/Orders obtained and Staff clarify orders Established Patient Charge Established Patient Point Assignment: 90 Established Patient Point Charge: Level 3 (80-115)
== END 2025-03-25 14:15 | disposition home or self-care (01) ==
LOC: HODAHC 13:32
PROVIDERS: PCP Internal Medicine; Referring Provider Internal Medicine; Supervising Provider Student in an Organized Health Care Education/Training Program; Visit Provider Student in an Organized Health Care Education/Training Program
DX: F20.9 Schizophrenia, unspecified (principal)
CPT/HCPCS: 99213; G0463